=== PATIENT | male | born 1990 | race Caucasian/White ===

== ENCOUNTER 2023-07-02 16:09 | Outpatient (OUT) | payer OTHER, SELFPAY ==
--- NOTE | 2023-07-02 | XR_ITS ---
The [address] [address] Patient Name: JUMANA BALLARD MRN: [id number] date: 1990 Sex: M Assigned Patient Location: LAB Current Patient Location: LAB Accession/Order Number: [id number] Exam Date: 07/02/2023 16:35 Report Date: 07/02/2023 17:11 At the request of: TAMANNA CHAN Procedure: XR foot LT 2V EXAM: XR foot LT 2V HISTORY: M79.672 COMPARISON: None. TECHNIQUE: 2 views of the left foot were obtained. FINDINGS: There is no evidence of an acute fracture or dislocation. There is very slight narrowing at the first metatarsophalangeal joint, and superficial soft tissue swelling is noted. The joint spaces are otherwise intact. No abnormal soft tissue calcifications are present. XR/XR foot LT 2V IMPRESSION: Minimal degenerative changes are seen at the first metatarsophalangeal joint. Soft tissue swelling and edema is also present at this joint. There is no evidence of an acute fracture or dislocation, and the joint space otherwise intact. Electronically authenticated by: WILLIAM IVY Date: 07/02/2023 17:11
[2023-07-02 16:48] LABS: Erythrocyte Sedimentation Rate 19 mm/hr (<=15)
[2023-07-02 17:11] LABS: Uric Acid 7.3 mg/dL (3.5-7.2)
[2023-07-02 17:15] LABS: C Reactive Protein <0.50 mg/dL (<=0.50)
== END 2023-07-02 16:10 | disposition home or self-care (01) ==
LOC: LAB 16:14
PROVIDERS: PCP Family Medicine; Visit Provider Family Medicine
DX: M79.672 Pain in left foot (principal); E79.0 Hyperuricemia without signs of inflammatory arthritis and tophaceous disease; M25.475 Effusion, left foot
CPT/HCPCS: 36415; 73620; 84550; 85652; 86140

== ENCOUNTER 2023-09-14 06:50 | Outpatient (OUT) | payer OTHER, SELFPAY ==
--- OUTSIDE RECORDS SUMMARY | 2023-09-14 06:55 | XMS_ITS | CCD ---
Author Organization [facility] Care Team Providers Care School Operations Manager Name Role Phone BRADFORD HARRIS Admitting Unavailable BRADFORD HARRIS Attending Unavailable DR EDUARDO HERNANDEZ Primary Care Unavailable DR KINZA MORFIN Consulting Unavailable CHARLES POWER Consulting Unavailable ECTOR SHI Consulting Unavailable Georgi Unger Unavailable Claudine John Unavailable Sherrie Pride Unavailable Allergies Allergy Classification Reported Allergen(s) Allergy Type Date of Onset Reaction(s) Facility (6 sources) Amoxicillin Drug Allergy Unknown [facility] Other (6 sources) penicillAMINE Drug Allergy unknown [facility] Other Medications Current Medications Medication Drug Class(es) Dates Sig (Normalized) Sig (Original) [id number] 200 actuat albuterol 0.09 mg/actuat metered dose inhaler (3 sources) beta2-Adrenergic Agonist Start: 06-29-2022 take 2 puff(s) by inhalation four times daily as needed Albuterol Sulfate HFA 108 (90 Base) MCG/ACT 2 puffs Inhalation 4 times a day prn Jun, Active Start: 06-29-2022 take 2 puff(s) by in halation four times daily as needed Albuterol Sulfate HFA 108 (90 Base) MCG/ACT 2 puffs Inhalation 4 times a day prn Jun, Active allopurinol 100 mg oral tablet (2 sources) Xanthine Oxidase Inhibitor Start: 07-31-2019 take 1 tablet by mouth every twenty-four hours Allopurinol 100 MG 1 tablet Orally Once a day for 30 days Jul, Active azithromycin 250 mg oral tablet (1 source) Macrolide Antimicrobial Start: 07-26-2023 Azithromycin 250 MG 2 tablets on day 1 Orally then take 1 tablet daily on days 2-5 for 5 days Jul, Active doxycycline hyclate 100 mg oral tablet (3 sources) Tetracycline-class Drug Start: 06-29-2022 take 1 tablet by mouth every twelve hours Doxycycline Hyclate 100 MG 1 tablet Orally Twice a day for 7 days Jun, Active hydrocortisone 10 mg/ml / neomycin 3.5 mg/ml / polymyxin b 29070 unt/ml otic suspension (3 sources) Aminoglycoside Antibacterial, Polymyxin-class Antibacterial, Corticosteroid Start: 06-29-2022 Neomycin-Polymyx in-HC 3.5-64179-9 3 drops left ear Three times a day for 7 days Jun, Active predniSONE 20 mg oral tablet (6 sources) Start: 06-29-2022 take 1 tablet by mouth every twelve hours predniSONE 20 MG 1 tablet Orally 2 times a day for 5 day(s) Jun, Active Start: 03-26-2022 predniSONE 20 MG take 3 tablets Orally x3 days, then 2 tabs x3 days then 1 tab a day x3 days then take 1/2 tablet x4 days with food or milk for 13 days Mar, Active terbinafine 250 mg oral tablet (1 source) Allylamine Antifungal Start: 05-20-2023 take 1 tablet by mouth every twenty-four hours Terbinafine HCl 250 MG 1 tablet Orally Once a day for 15 days Apr, Active Completed/Discontinued Medications Medication Drug Class(es) Dates Sig (Normalized) Sig (Original) Triamcinolone (6 sources) Corticosteroid Start: 03-10-2014 NEVAEHALOG - 10 m g Feb, 1.5 cc Problems Problem Classification Problem Date Documented Date Episodic/Chronic Allergic reactions (1 source) Unspecified contact dermatitis, unspecified cause Episodic Chronic obstructive pulmonary disease and bronchiectasis (1 source) Bronchitis, not specified as acute or chronic Episodic Disorders of lipid metabolism (7 sources) Dyslipidemia; Translations: [Hyperlipidemia, unspecified] Chronic E Codes: Fall (1 source) Unspecified fall, initial encounter; Translations: [UNSPECIFIED FALL INITIAL ENCOUNTER] Onset: 06-20-2022 Episodic Gout and other crystal arthropathies (3 sources) Primary gout; 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, 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 Immunizations and screening for infectious disease (4 sources) Patient encounter status; Translations: [Screening examination for venereal disease] Onset: 06-20-2022 Episodic Open wounds of head; neck; and trunk (1 source) Laceration without foreign body of scalp, initial encounter; Translations: [LACERATION W/O FB SCALP INITIAL ENC] Onset: 06-20-2022 Episodic Other aftercare (1 source) Encounter for removal of sutures Episodic Other connective tissue disease (1 source) Pain in left foot Episodic Other ear and sense organ disorders (1 source) Unspecified acute noninfective otitis externa, left ear Episodic Other injuries and conditions due to external causes (3 sources) Unspecified injury of head, initial encounter; Translations: [UNSPECIFIED INJURY HEAD INITIAL ENC] Onset: 06-13-2022 Episodic Other injuries and conditions due to external causes (1 source) Other specified injuries of head, initial encounter; Translations: [OTH SPEC INJURIES HEAD INITIAL ENC] Onset: 06-20-2022 Episodic Other nutritional; endocrine; and metabolic disorders (3 sources) Hyperuricemia without signs of inflammatory arthritis and tophaceous disease; Translations: [Hyperuricemia without signs of inflammatory arthritis and tophaceous disease] Episodic Other nutritional; endocrine; and metabolic disorders (2 sources) Hyperuricemia without signs of inflammatory arthritis and tophaceous disease Episodic Other nutritional; endocrine; and metabolic disorders (1 source) Abnormal weight gain Episodic Otitis media and related conditions (1 source) Otitis media, unspecified, left ear Episodic Results Test Name Value Interpretation Reference Range Facil ity CT CSPINE WO CONon 2 CT CSPINE WO CON EXAMINATION: CT CSPI NE WO CON HISTORY: UNSPECIFIED INJURY OF HEAD, INITIAL ENCOUNTER COMPARISON: No relevant comparison available. TECHNIQUE: Axial, Coronal, and Sagittal images were created without IV contrast. Dose reduction techniques were achieved by using automated exposure control and/or adjustment of mA and/or kV according to patient size and/or use of iterative reconstruction technique. FINDINGS: VERTEBRAL BODIES: Straightening of the normal lordotic curvature. No fracture, pars defect, or osseous lesion. FACET JOINTS: No disruption or abnormal widening. CERVICAL DISCS: Slight narrowing C5-C6, C6-C7. CENTRAL CANAL: No spinal stenosis or evidence of hemorrhage. PARASPINAL AREA: No visible mass. IMPRESSION: 1. No acute bone abnormality. 2. Minimal degenerative disc disease. 3. Reversal of the normal lordotic curvature; positioning versus muscle spasm. Electronically authenticated by: KINZA MORFIN Date: 2022-06-13 14:31 Normal [facility] CT HEAD WO CONon 06-13-2022 CT HEAD WO CON EXAMINATION: CT HEAD WO CON HISTORY: UNSPECIFIED INJURY OF HEAD, INITIAL ENCOUNTER COMPARISON: None. TECHNIQUE: CT examination of the head without IV contrast. Dose reduction techniques were achieved by using automated exposure control and/or adjustment of mA and/or kV according to patient size and/or use of iterative reconstruction technique. FINDINGS: No acute intracranial hemorrhage. No acute loss of kebede/white differentiation. The ventricles and sulci are normal in appearance. The osseous structures are unremarkable. No soft tissue abnormality identified. The paranasal sinuses and mastoid air cells are clear. IMPRESSION: 1. No acute intracranial abnormality. Electronically authenticated by: ECTOR SHI Date: 2022-06-13 14:23 Normal [facility] PROGRESSon 08-18-2019 PROGRESS HNO ID: [id number] Author: Starla (Wayne) Jhoan Service: ? Author Type: Technologist Type: Progress Notes Filed: 08/18/2019 1:40 PM Note Text: Semen Cryopreservation Storage One Year WAYNE Najera Normal [facility] Semen W/Uon 2018 % Motile Sperm 72 % Normal >40 [facility] Comment on above: Performed By: #### B ESMNR #### [facility] [address], [place] [address] Abnormal Head 90 % Normal [facility] Comment on above: Performed By: #### B ESMNR #### [place] [facility] [address] [place], [place] [address] Abnormal Tails 4 % Normal [facility] Comment on above: Performed By: #### B ESMNR #### [facility] [address] [place], [place] [address] Abstinence Time 2.[address] [facility] Comment on above: Performed By: #### B ESMNR #### [facility] [address] [place], [place] [address] aPTT Coag (Bld) [Time] 1135/EVALUATION TIME [address] [facility] Comment on above: Performed By: #### B ESMNR #### [facility] [address] [place] [phone] Collection Time [address] [facility] Comment on above: Performed By: #### B ESMNR #### [facility] [address] [place] [phone] Concentration 64 M/mL Normal >15 [facility] Comment on above: Performed By: #### B ESMNR #### [facility] [address] [place] [phone] Date Of Analysis IVF SEMEN ANALYSIS 08/27/18 [facility] Comment on above: Performed By: #### B ESMNR #### [facility] [address] [place] [phone] Forward Progression 3 Normal [facility] Comment on above: Result Comment: (NOT E) INTERPRETATION: 0 = No motility 1 = Weak, twitching in place 2 = Poor to moderate, erratic 3 = Good motility, unidirectional 4 = Rapid unidirectional Performed By: #### B ESMNR #### [facility] [address] [place] [phone] Semen Color Normal [facility] Comment on above: Performed By: #### B ESMNR #### [facility] [address] [place] [phone] Semen Comment 1 PARTNER=MARGARITA BALLARD Normal [facility] Comment on above: Result Comment: ANTI BODIES NEGATIVE IGG=0% IGA=0% Performed By: #### B ESMNR #### [facility] [address] [place] [phone] Semen Comment 2 2 VIALS FROZEN POST THAW MOTILITY 66% [facility] Comment on above: Performed By: #### B ESMNR #### [facility] [address] [place] [phone] Semen pH 7.6 Normal >7.2 [facility] Comment on above: Performed By: #### B ESMNR #### [facility] [address] [place] [address] Semen Viscosity Normal Normal [facility] Comment on above: Performed By: #### B ESMNR #### [facility] [address] [place] [phone] Semen Volume 1.4 mL Low >1.5 [facility] Comment on above: Result Comment: Test ing performed at the [facility]. Contact Dr. Flora Verdugo, PhD, [facility] for any questions ([phone]). Performed By: #### B ESMNR #### [place] [address] [place] [address] Sperm Diff (Dave) 6 % Normal >4 [facility] Comment on above: Performed By: #### B ESMNR #### [place] [address] [place] [address] Total Count Sperm 89.6 M Normal [facility] Comment on above: Performed By: #### B ESMNR #### [place] [address] [place] [address] Total Motile Sperm 64.51 M Normal [facility] Comment on above: Performed By: #### B ESMNR #### [place] [address] [place] [address] CNNURSEon 08-27-2018 CNNURSE Nurse Visit (REIBD) JUMANA BALLARD ([id number]) 1990 M Date Time Provider Department 08/27/18 11:00 AM NURSE [facility] ERIKA KEVIN During your visit today, we recorded the following information about you: Referring Provider: SELF [200] Allergies As of Date: 08/27/2018 (Not on File) Date Reviewed: Never Reviewed Primary Visit Diagnosis:Fertility testing [Z31.41] Problem List As Of Date: 08/27/2018 (None) Encounter Status:Closed by BECCA GALVEZ MD on 09/17/18 [facility] CNOVon 08-27-2018 CNOV Office Visit (ANDRBE ) JUMANA BALLARD ([id number]) 1990 M Date Time Provider Department 08/27/18 11:00 AM ANDROLOGY CHAIR POST MACHINE OPERATOR [facility] During your visit today, we recorded the following information about you: WAYNE Najera 08/27/2018 2:22 PM Signed IVF Semen Analysis WAYNE Najera Referring Provider: SELF [200] Allergies As of Date: 08/27/2018 (Not on File) Date Reviewed: Never Reviewed Primary Visit Diagnosis:Fertility testing [Z31.41] Problem List As Of Date: 08/27/2018 (None) Encounter Status:Closed by STARLA VILLANUEVA on 08/27/18 [facility] PROGRESSon 08-27-2018 PROGRESS HNO ID: [id number] Author: Starla (Wayne) Jhoan Service: ? Author Type: Technologist Type: Progress Notes Filed: 08/27/2018 2:22 PM Note Text: IVF Semen Analysis WAYNE Najera [facility] Vital Signs Date Time Vital Sign Value Performing Clinician Facility 07-04-2023 10:10-0500 Body height 177.8 cm Georgi Unger Other [facility] Other 06-29-2022 14:30-0500 Body height 177.8 cm Sherrie Pride Other [facility] Other 06-29-2022 14:30-0500 Body mass index (BMI) [Ratio] 25.11 kg/m2 Sherrie Pride Other [facility] Other 06-29-2022 14:30-0500 Body temperature 98.9 [degF] Sherrie Pride Other [facility] Other 06-29-2022 14:30-0500 Body weight 79.38 kg Sherrie Pride Other [facility] Other 06-29-2022 14:30-0500 Respiratory rate 18 /min Sherrie Pride Other [facility] Other 06-29-2022 14:30-0500 SaO2% (BldA) [Mass fraction] 97 % Sherrie Pride Other [facility] Other 06-22-2022 11:10-0500 Body height 177.8 cm John Chow Other [facility] Other 06-22-2022 11:10-0500 Body mass index (BMI) [Ratio] 25.82 kg/m2 John Chow Other [facility] Other 06-22-2022 11:10-0500 Body temperature John Chow Other [facility] Other 06-22-2022 11:10-0500 Body weight 81.65 kg John Claudine Other [facility] Other 06-22-2022 11:10-0500 Diastolic blood pressure 88 mm[Hg] John Chow Other [facility] Other 06-22-2022 11:10-0500 SaO2% (BldA) [Mass fraction] 97 % John Chow Other [facility] Other 06-22-2022 11:10-0500 Systolic blood pressure 146 mm[Hg] John Chow Other [facility] Other Encounters Encounter Date Encounter Type Care Provider Facility Start: 07-25-2023 End: 07-25-2023 ambulatory Georgi Unger Other [facility] Other Start: 07-25-2023 Telephone encounter Georgi Unger [facility] Start: 07-04-2023 End: 07-04-2023 ambulatory Georgi Unger Other [facility] Other Start: 07-04-2023 Encounter for genera l adult medical examination without abnormal findings Georgi Unger [facility] [place] Start: 07-04-2023 Telephone encounter Georgi Unger [facility] [place] Start: 07-02-2023 End: 07-02-2023 ambulatory Georgi Unger Other [facility] Other Start: 07-02-2023 Telephone encounter Georgi Unger [facility] [place] Start: 06-29-2022 End: 06-29-2022 ambulatory Sherrie Pride Other [facility] Other Start: 06-29-2022 Office outpatient vi sit 15 minutes Sherrie Pride [facility] [place] Start: 06-22-2022 End: 06-22-2022 ambulatory John Chow Other [facility] Other Start: 06-22-2022 Office outpatient vi sit 15 minutes John Chow [facility] [address] Start: 06-13-2022 End: 06-13-2022 ambulatory BRADFORD HARRIS Facility:[facility] Start: 03-26-2022 End: 03-26-2022 ambulatory Georgi Unger Other [facility] Other Start: 03-26-2022 Telephone encounter Georig Unger [facility] [place] Start: 11-14-2020 SAMUEL, Provider: ANDROLOGY LATOYA MARTINEZ MP IFOB, Status: Pen, Time: 10:30 AM Sheri Reyes MD Work Phone: [id number] IVF Work Phone: Start: 11-13-2020 AUDIT Sheri Reyes MD Work Phone: [id number] IVF Work Phone: Plan of Treatment Date Care Activity Detail Author Start: 12-02-2020 SAMUEL, Provider: ANDROLOGY LATOYA MARTINEZ MP IFOB, Status: Pen, Time: 11:30 AM SEMDIANA, Provider: ANDROLOGY IVF TRINI MARTINEZ IFOB, Status: Pen, Time: 11:30 AM [id number] IVF Work Phone: Immunizations Immunization Date Immunization Notes Care Provider Gama tompkins NEGATED: Highlighted row has not occurred!08-05-2017 influenza, injectable, quadrivalent, contains preservative Patient Objection Georgi Unger Other [facility] Other Payers Date Payer Category Payer Unknown [id number] 1961 Unknown [id number] Unknown [email or web address] Social History Date Type Detail Facility Unknown if ever smoked [facility] Other Sex Assigned At Sex Assigned At Bir th [facility] Other Evaluation note 07-04-2023 Note Date & Type Note Facility 07-04-2023 Evaluation note Encounter Date Diagnosis Assessment Notes Jun, Idiopathic gout of left foot, unspecified chronicity (ICD-10 - M10.072) He states that his left foot pain at the base of the big toe is starting to improve. He is on the second day of the prednisone burst. His uric acid level is mildly elevated and we discussed that it was actually even higher when it was checked in 2019 and he had started allopurinol at that time and took it for a few months and then it fell by the Benge and he did not follow-up after that. He will continue the prednisone taper and start allopurinol 2 days from now taking 1 daily. We will send that in for him today. Jun, Elevated uric acid in blood (ICD-10 - E79.0) We discussed diet changes to help lower the uric acid level. He does not eat red meat and he will try to limit this. It is good that he does not drink much alcohol. We will recheck the uric acid level with his wellness blood work in approximately 3 months. Jun, Dyslipidemia (ICD-10 - E78.5) Jun, Weight gain (ICD-10 - R63.5) Jun, Wellness examination (ICD-10 - Z00.00) For lab order only Jun, Other 10:18 AM through 10:34 AM [facility] Other Evaluation note 07-02-2023 Note Date & Type Note Facility 07-02-2023 Evaluation note Encounter Date Diagnosis Assessment Notes Jun, Elevated uric acid in blood (ICD-10 - E79.0) Jun, Left foot pain (ICD-10 - M79.672) [facility] Other Evaluation note 06-29-2022 Note Date & Type Note Facility 06-29-2022 Evaluation note Encounter Date Diagnosis Assessment Notes Jun, Left otitis media, unspecified otitis media type (ICD-10 - H66.92) Middle ear infection: adult home care material was printed Drink plenty fluids, get plenty of rest. Take the doxycycline and prednisone as prescribed until gone. Use the albuterol inhaler as prescribed as needed for cough or shortness of breath. Use eardrops as prescribed. Take Tylenol or Motrin as needed for aches pains or fevers. Follow-up with your family physician if no improvement in 2 to 3 days. Jun, Acute otitis externa of left ear, unspecified type (ICD-10 - H60.502) Jun, Bronchitis (ICD-10 - J40) [facility] Other Evaluation note 06-22-2022 Note Date & Type Note Facility 06-22-2022 Evaluation note Encounter Date Diagnosis Assessment Notes May, Removal of primitivo (ICD-10 - Z48.02) 9 primitivo removed by ABRAHAM Spence with staple remover. Pt tolerated procedure well. [facility] Other Evaluation note 03-26-2022 Note Date & Type Note Facility 03-26-2022 Evaluation note Encounter Date Diagnosis Assessment Notes Mar, Contact dermatitis (ICD-10 - L25.9) He thinks he came into contact with the poison rey mid week last week, he is in the middle of cleaning a thicket out and believes that this is where he came into contact with it. I did recommend that he be treated with steroids. He is in agreement to this and voices that he usually has to take steroids when he has poison rey. Guidance is given on how to take the medication. Side effects/risks /benefits of medication were reviewed. Use caution when in the sun, and do not lift anything that would place strain on his tendons. If he develops Achilles tendon pain stop the medication. Take medication with food. Mar, Other 1:06 PM - 1:11 PM [facility] Other History general Narrative - Reported 07-25-2021 Note Date & Type Note Facility 07-25-2021 History general N arrative - Reported Type Medical History past hx of chickenpoxs Medical History COVID-19 07/2021 Surgical History wisdom teeth extracted 2015 [facility] Other Evaluation note Note Date & Type Note Facility Evaluation note No Information [facility] Other Summary Purpose Family History No Family History Records FoundNo Family History Records Found Advance Directives No Advanced Directives Records FoundNo Advanced Directives Records Found Additional Source Comments (unrecognized sect ion and content) No Status Records FoundNo Status Records Found INFORMATION SOURCE (unrecogn ized section and content) DATE CREATED AUTHOR 08/18/2019 [facility] DATE CREATED AUTHOR AUTHOR'S NEIL MCGREGOR 06/20/2022 [facility] REASON FOR VISIT (unrecogniz ed section and content) poison ivyREMOVE STAPLESEARA TREVOR, COUGH, CONGESTIONpossible goutDiscuss lab resultsfrom 07/18/23 FOR RECORDS PERTAINING TO PATIENTS WHO ARE OR HAVE BEEN ENROLLED IN A CHEMICAL DEPENDENCY/SUBSTANCEABUSE PROGRAM, SOME INFORMATION MAY BE OMITTED. This clinical summary was aggregated from multiple sources. Caution should be exercised in using it in the provision of clinical care. This summary normalizes information from multiple sources, and as a consequence, information in this document may materially change the coding, format and clinical context of patient data. In addition, data may be omitted in some cases. CLINICAL DECISIONS SHOULD BE BASED ON THE PRIMARY CLINICAL RECORDS. [employer] provides no warranty or guarantee of the accuracy or completeness of information in this document.
[2023-09-14 07:08] LABS: Bilirubin Urine NEGATIVE (NEGATIVE); Blood Urine NEGATIVE (NEGATIVE); Clarity Urine CLEAR (CLEAR); Color Urine LT. YELLOW (YELLOW); Glucose Urine UA NEGATIVE (NEGATIVE); Ketones Urine NEGATIVE (NEGATIVE); Leukocyte Esterase Urine NEGATIVE (NEGATIVE); Nitrite Urine NEGATIVE (NEGATIVE); Protein Urine NEGATIVE (NEG/TRACE); Specific Gravity Urine 1.025 (1.005-1.025); Urobilinogen Urine 0.2 EU/dL (0.2-1.0)
[2023-09-14 07:08] LABS: Basophils Absolute Auto 0.1 10^3/uL (0.0-0.1); Basophils Percent Auto 0.7 % (0.2-2.0); Eosinophils Absolute Auto 0.2 10^3/uL (0.0-0.7); Eosinophils Percent Auto 2.3 % (0.9-7.0); Hematocrit 43.8 % (42.0-54.0); Hemoglobin 14.1 g/dL (14.0-18.0); Immature Granulocytes Abs Auto 0.03 10^3/uL (0.00-0.03); Immature Granulocytes Pct Auto 0.4 % (0.0-0.5); Lymphocytes Absolute Auto 2.6 10^3/uL (1.2-3.8); Lymphocytes Percent Auto 35.2 % (20.5-60.0); Mean Corpuscular HGB Conc 32.2 g/dL (29.9-35.2); Mean Corpuscular Volume 87.1 fL (80.0-94.0); Mean Platelet Volume 9.5 fL (9.5-13.5); Monocytes Absolute Auto 0.6 10^3/uL (0.3-0.8); Monocytes Percent Auto 7.6 % (1.7-12.0); Neutrophils Percent Auto 53.8 % (43.0-75.0); Platelet Count 221 10^3/uL (150-450); Red Blood Count 5.03 10^6/uL (4.70-6.10); Red Cell Distribution Width 12.3 % (11.0-15.0); White Blood Count 7.4 10^3/uL (4.0-11.0)
[2023-09-14 07:33] LABS: Bacteria Urine NONE SEEN #/HPF (NONE SEEN); Cast Seen? NONE SEEN #/LPF (NONE SEEN); Crystals Seen? None Seen #/HPF (None Seen); Mucus Urine NONE SEEN (NONE SEEN); RBC Urine NONE SEEN #/HPF (0-2); Squamous Epithelial Cell Urine RARE #/LPF (NONE/RARE); WBC Urine NONE SEEN #/HPF (NONE SEEN)
[2023-09-14 08:01] LABS: Alanine Aminotransferase 23 U/L (16-63); Albumin Globulin Ratio 1.1; Albumin Level 3.9 g/dL (3.4-5.0); Alkaline Phosphatase 60 U/L (46-116); Anion Gap 12.6; Aspartate Amino Transferase 15 U/L (15-37); BUN Creatinine Ratio 12.3; Bilirubin Total 0.4 mg/dL (0.2-1.0); Carbon Dioxide 30.4 mmol/L (21.0-32.0); Chloride 104 mmol/L (98-107); Chol HDL Ratio 4.5; Cholesterol 163 mg/dL (<=200); Estimated GFR (African America >60 (>=60); Estimated GFR (Non-African Ame >60 (>=60); Globulin 3.4 g/dL; Glucose 101 mg/dL (74-106); HDL Cholesterol 36 mg/dL (40-60); Sodium 143 mmol/L (136-145); Thyroid Stimulating Hormone 2.272 uIU/mL (0.358-3.740); Total Protein 7.3 g/dL (6.4-8.2); Triglycerides 214 mg/dL (<=150); Uric Acid 6.7 mg/dL (3.5-7.2); VLDL CHOLESTEROL 42.8 mg/dL
== END 2023-09-14 06:51 | disposition home or self-care (01) ==
PROVIDERS: PCP Family Medicine; Visit Provider Family Medicine
DX: Z00.00 Encounter for general adult medical examination without abnormal findings (principal); M10.072 Idiopathic gout, left ankle and foot; E78.5 Hyperlipidemia, unspecified; R63.5 Abnormal weight gain
CPT/HCPCS: 36415; 80053; 80061; 81001; 84443; 84550; 85025

== ENCOUNTER 2025-03-29 12:25 | Emergency (ER) | payer OTHER, SELFPAY ==
--- OUTSIDE RECORDS SUMMARY | 2025-03-19 07:33 | XMS_ITS | Continuity of Care Document ---
Author Organization [facility] Address [address] [place] [address] Phone Care Team Providers Care Magnetic Resonance Technologist Name Role Phone Cornel Georgi OMER Primary Care Provider [phone] Georgi Unger DO Attending Provider Care Teams Patient Care Team Team Status: Active Member Role Status Zaira Unger DO Primary Care Provider Active Visit Care Team Team Status: Inactive Member Role Status Zaira Unger DO Primary Care Provider Active S tart: March 18, 2025 End: March 18, 2025 Georgi Unger DO Attending Provider Active Star t: March 18, 2025 End: March 18, 2025 Patient Care Team Team Status: Inactive Member Role Status Zaira Unger DO Primary Care Provider Active S tart: March 19, 2025 End: March 19, 2025 Georgi Unger DO Attending Provider Active Star t: March 19, 2025 End: March 19, 2025 Chief Complaint and Reason for Visit Chief Complaint Admit Date wellness/review labs March 19 10:59am Reason for Visit Admit Date Elevated blood uric acid level March 19, 2025 10:59am Encounter for prostate cancer screening March 19, 2025 10:59am Hyperglycemia March 19, 2025 10:59am Hyperlipidemia March 19, 2025 10:59am Other abnormal blood chemistry March 19, 2025 10:59am Wellness examination March 19 10:59am Allergies, Adverse Reactions, Alerts Allergen Type Severity Reaction Last Updated Verified Status amoxicillin Allergy Unknown Rash March 19, 2025 8:54am Yes Active penicillamine Allergy Unknown unknown March 19, 2025 8:54a m Yes Active Social History Smoking Status Status Start Date End Date Date of Observa tion Never smoked tobacco (finding) March 19, 2025 11:02am Observation Status Observation Response Date of Response Legal Sex Male (finding) Sex Assigned At Male [birth year] Family History Relationship Condition Age at Onset Recorded Date/T fer grandparent Malignant neoplasm Unknown Family history of lung cancer Unknown Unknown grandparent Unknown grandparent Unknown grandparent Unknown mother Diabetes mellitus Unknown Problems Active Problems Medical Problem Onset Date Status Encounter for prostate cancer screening Unknown Active Encounter for screening for cardiovascular disor ders Unknown Active Tinea Unknown Active Dyslipidemia Unknown Active Wellness examination Unknown Active Hyperglycemia Unknown Active Hyperlipidemia Unknown Active Elevated blood uric acid level Unknown A ctive Other abnormal blood chemistry Unknown A ctive Idiopathic gout of left foot Unknown Act [place] Medications Medication Status Dose Units Route Directions Qty Days St art Date Stop Date End Date Instructions Adherence [place] (No Known Home Meds) Active 2024 12:00a m Allopurinol 100 mg tablet Discont inued 1 TAB PO Daily September 16, 2023 12:00a m September 16, 2023 4:46p m FreeTextSi tablet Orally Once a day; Note: Source Status: Taking; Refills: 3; Qty: 30 Tablet; Provider: Cornel Mchugh Terbinafine Hcl 250 mg tablet Discont inued 250 MG PO Daily September 16, 2023 12:00a m [facility] 2024 11:01 am Relevant Diagnostic Tests and/or Laboratory Data Laboratory Results Test Collection Date/Time Result Date/Time Result Interpretation Reference Range Result Comment Performing Site Correcte d White Blood Count March 18, 2025 7:12am March 18, 2025 5:03pm 7.1 10*3/uL 4.1-10.5 [facility] [id number] [address] [facility] [address] Uncorrec jose luis WBC Count March 18, 2025 7:12am March 18, 2025 5:03pm 7.1 10*3/uL 4.1-10.5 [facility] [id number] [address] [facility] [address] Red Blood Count March 18, 2025 7:12am March 18, 2025 5:03pm 5.03 10*6/uL 3.90-5.60 [facility] [id number] [address] [facility] [address] Hemoglob in March 18, 2025 7:12am March 18, 2025 5:03pm 14.4 g/dL 13.0-17.0 [facility] [id number] [address] [facility] [address] Hematocr it March 18, 2025 7:12am March 18, 2025 5:03pm 43.0 % 38.8-50.0 [facility] [id number] [address] [facility] [address] Mean Corpuscu lar Volume March 18, 2025 7:12am March 18, 2025 5:03pm 85.4 fL 83.5-101 [facility] [id number] [address] [facility] [address] Mean Corpuscu lar Hemoglob in March 18, 2025 7:12am March 18, 2025 5:03pm 28.7 pg 27.5-35.2 [facility] [id number] [address] [facility] [address] Mean Corpuscu lar Hemoglob in Concent March 18, 2025 7:12am March 18, 2025 5:03pm 33.6 g/dL 32.5-35.6 [facility] [id number] [address] [facility] [address] Red Cell Distribu tion Width March 18, 2025 7:12am March 18, 2025 5:03pm 12.8 % 12.0-14.8 [facility] [id number] [address] [facility] [address] Platelet Count March 18, 2025 7:12am March 18, 2025 5:03pm 236 10*3/uL 150-450 [facility] [id number] [address] [facility] [address] Mean Platelet Volume March 18, 2025 7:12am March 18, 2025 5:03pm 8.7 fL 6.6-10.1 [facility] [id number] [address] [facility] [address] Neutroph ils (%) (Auto) March 18, 2025 7:12am March 18, 2025 5:03pm 61.7 % . [facility] [id number] [address] [facility] [address] Lymphocy divine (%) (Auto) March 18, 2025 7:12am March 18, 2025 5:03pm 30.4 % . [facility] [id number] [address] [facility] [address] Monocyte s (%) (Auto) March 18, 2025 7:12am March 18, 2025 5:03pm 6.4 % . [facility] [id number] [address] [facility] [address] Eosinoph ils (%) (Auto) March 18, 2025 7:12am March 18, 2025 5:03pm 1.0 % . [facility] [id number] [address] [facility] [address] Basophil s (%) (Auto) March 18, 2025 7:12am March 18, 2025 5:03pm 0.5 % . [facility] [id number] [address] [facility] [address] Nucleate d RBC Relative Count (auto) March 18, 2025 7:12am March 18, 2025 5:03pm 0.1 /100{WBC} 0-0.5 [facility] [id number] [address] [facility] [address] Neutroph ils # (Auto) March 18, 2025 7:12am March 18, 2025 5:03pm 4.4 10*3/uL 1.8-7.7 [facility] [id number] [address] [facility] [address] Lymphocy divine # (Auto) March 18, 2025 7:12am March 18, 2025 5:03pm 2.1 10*3/uL 1.00-4.8 [facility] [id number] [address] [facility] [address] Monocyte s # (Auto) March 18, 2025 7:12am March 18, 2025 5:03pm 0.5 10*3/uL 0.0-0.8 [facility] [id number] [address] [facility] [address] Eosinoph ils # (Auto) March 18, 2025 7:12am March 18, 2025 5:03pm 0.1 10*3/uL 0.0-0.45 [facility] [id number] [address] [facility] [address] Basophil s # (Auto) March 18, 2025 7:12am March 18, 2025 5:03pm 0.0 10*3/uL 0.0-0.2 [facility] [id number] [address] [facility] [address] Urine Color March 18, 2025 7:12am March 18, 2025 3:04pm Yellow Yellow [facility] [id number] [address] [facility] [address] Urine Appearan ce March 18, 2025 7:12am March 18, 2025 3:04pm Clear Clear [facility] [id number] [address] [facility] [address] Urine Specific Clemons March 18, 2025 7:12am March 18, 2025 3:04pm 1.020 1.001-1.03 0 [facility] [id number] [address] [facility] [address] Urine pH March 18, 2025 7:12am March 18, 2025 3:04pm 6.0 5.0-9.0 [facility] [id number] [address] [facility] [address] Urine Leukocyt e Esterase March 18, 2025 7:12am March 18, 2025 3:04pm Negative Negative [facility] [id number] [address] [facility] [address] Urine Nitrite March 18, 2025 7:12am March 18, 2025 3:04pm Negative Negative [facility] [id number] [address] [facility] [address] Urine Protein March 18, 2025 7:12am March 18, 2025 3:04pm Negative mg/dL Negative [facility] [id number] [address] [facility] [address] Urine Glucose (UA) March 18, 2025 7:12am March 18, 2025 3:04pm Normal mg/dL Normal [facility] [id number] [address] [facility] [address] Urine Ketones March 18, 2025 7:12am March 18, 2025 3:04pm Negative Negative [facility] [id number] [address] [facility] [address] Urine Urobilin ogen March 18, 2025 7:12am March 18, 2025 3:04pm Normal mg/dL Normal [facility] [id number] [address] [facility] [address] Urine Bilirubi n March 18, 2025 7:12am March 18, 2025 3:04pm Negative Negative [facility] [id number] [address] [facility] [address] Urine Occult Blood March 18, 2025 7:12am March 18, 2025 3:04pm Negative Negative [facility] [id number] [address] [facility] [address] Glucose Level March 18, 2025 7:12am March 18, 2025 5:21pm 101 mg/dL Above high normal 70-100 ADA recommended reference rangeRandom Glucose Reference Range is dependent on time and content of last meal. Glucose of more than 200 mg/dL in a nonstressed , ambulatory subject supports the diagnosis of Diabetes Mellitus. [facility] [id number] [address] [facility] [address] Blood Urea Nitrogen March 18, 2025 7:12am March 18, 2025 5:21pm 20 mg/dL 01-15 [facility] [id number] [address] [facility] [address] Creatini ne March 18, 2025 7:12am March 18, 2025 5:21pm 1.13 mg/dL 0.70-1.30 [facility] [id number] [address] [facility] [address] Estimate d GFR (CKD-EPI ) March 18, 2025 7:12am March 18, 2025 5:21pm > 60.0 mL/Min [facility] [id number] [address] [facility] [address] Sodium Level March 18, 2025 7:12am March 18, 2025 5:21pm 140 mmol/L 136-145 [facility] [id number] [address] [facility] [address] Potassiu m Level March 18, 2025 7:12am March 18, 2025 5:21pm 4.2 mmol/L 3.5-5.1 [facility] [id number] [address] [place] [id number] Chloride Level March 18, 2025 7:12am March 18, 2025 5:21pm 105 mmol/L 98-107 [facility] [id number] [address] [facility] [address] Carbon Dioxide Level March 18, 2025 7:12am March 18, 2025 5:21pm 29.5 mmol/L 21.0-31.0 [facility] [id number] [address] [facility] [address] Anion Gap March 18, 2025 7:12am March 18, 2025 5:21pm 9.7 mEq/L 6.0-15.0 [facility] [id number] [address] [facility] [address] Calcium Level March 18, 2025 7:12am March 18, 2025 5:21pm 9.4 mg/dL 8.6-10.3 [facility] [id number] [address] [facility] [address] Total Protein March 18, 2025 7:12am March 18, 2025 5:21pm 7.1 g/dL 6.4-8.9 [facility] [id number] [address] [facility] [address] Albumin March 18, 2025 7:12am March 18, 2025 5:21pm 4.6 g/dL 3.5-5.7 [facility] [id number] [address] [facility] [address] Globulin March 18, 2025 7:12am March 18, 2025 5:21pm 2.5 g/dL [facility] [id number] [address] [facility] [address] Albumin/ Globulin Ratio March 18, 2025 7:12am March 18, 2025 5:21pm 1.8 [facility] [id number] [address] [facility] [address] Total Bilirubi n March 18, 2025 7:12am March 18, 2025 5:21pm 0.4 mg/dL 0.3-1.0 [facility] [id number] [address] [facility] [address] Aspartat e Amino Transf (AST/SGO T) March 18, 2025 7:12am March 18, 2025 5:21pm 16 U/L 13-39 [facility] [id number] [address] [place] [id number] Alanine Aminotra nsferase (ALT/SGP T) March 18, 2025 7:12am March 18, 2025 5:21pm 13 U/L 7-52 [facility] [id number] [address] [place], [place] [address] Alkaline Phosphat ase March 18, 2025 7:12am March 18, 2025 5:21pm 58 U/L 34-104 [facility] [id number] [address] [place], [place] [address] Uric Acid March 18, 2025 7:12am March 18, 2025 5:21pm 8.0 mg/dL Above high normal 4.4-7.6 [facility] [id number] [address] [place] [id number] Choleste rol Level March 18, 2025 7:12am March 18, 2025 5:21pm 181 mg/dL 140-200 Chol less than 200 mg/dl low riskChol 201-239 mg/dl borderline riskChol 240 mg/dl and greater high risk [facility] [id number] [address] [place], [place] [address] HDL Choleste rol March 18, 2025 7:12am March 18, 2025 5:21pm 30 mg/dL 23-92 HDL CHOL ATP-III CLASSIFICAT ION Cardiovascu lar RiskHDL > or equal to 60 mg/dL LOWHDL < 40 mg/dL HIGH [facility] [id number] [address] [place] [address] Triglyce rides Level March 18, 2025 7:12am March 18, 2025 5:21pm 335 mg/dL Above high normal 0-149 TRIG ATP III CLASSIFICAT IONTRIG less than 150 mg/dL NormalTRIG 150-199 mg/dL Borderline highTRIG 200-500 mg/dL High TRIG greater than 500 mg/dL Very highStandar d traceable to the Center for Disease Conrtrol and Prevention (CDC) test method. [facility] [id number] [address] [facility] [address] LDL Choleste rol, Calculat ed March 18, 2025 7:12am March 18, 2025 5:21pm 84 mg/dL 0-100 LDL ATP III CLASSIFICAT IONLDL less than 100 mg/dL OptimalLDL 100-129 mg/dL Near or above optimalLDL 130-159 mg/dL Borderline highLDL 160-189 mg/dL HighLDL greater than 189 mg/dL Very high [facility] [id number] [address] [place] [address] VLDL Choleste rol March 18, 2025 7:12am March 18, 2025 5:21pm 67 mg/dL [facility] [id number] [address] [place], [place] [address] Choleste rol/HDL Ratio March 18, 2025 7:12am March 18, 2025 5:21pm 6.0 <5.0 [facility] [id number] [address] [place], [place] [address] Prostate Specific Antigen Screen March 18, 2025 7:12am March 18, 2025 5:29pm 0.650 ng/mL 0.000-4.00 0 Serial tumor marker results determined by assays using different manufacture rs or methods may not be comparable. [facility] manufacture r and method:PowerDsine DXI, CHEMILUMINE SCENT IMMUNOASSAY . [facility] [id number] [address] [place], [place] [address] Thyroid Stimulat ing Hormone 3rd Gen March 18, 2025 7:12am March 18, 2025 5:47pm 2.15 u[iU]/mL 0.45-5.33 [facility] [id number] [address] [place], [place] [address] Pharmacy Creatini ne Clearanc e (Chem March 18, 2025 7:12am March 18, 2025 5:21pm N/A [facility] [id number] [address] [place], [place] [address] Vital Signs Vital Reading Result Reference Range Collection Date/Time Height 70 [in_i] March 19, 2025 10:58am Weight 78.92 kg March 19, 2025 10:58am Body Temperature 98.4 [degF] 97.6-99.0 February 232024 10:58am Heart Rate 80 /min 60-100 March 19, 2025 10:58am Oxygen saturation by Pulse oximetry 98 % 95-100 March 19, 2025 10:58am BP Systolic 138 mm[Hg] 100-140 March 19, 2025 11:04am BP Diastolic 90 mm[Hg] 60-100 March 19, 2025 11:04am BMI (Body Mass Index) 25.0 kg/m2 2024 10:58am Advance Directives Advance Directive Response Recorded Date/ Time Advance Directives No February 7:10am Insurance Providers Guarantor Kye Vini Bass Address [address] [place] [phone] Contact Info. Home Phone: Payer Policy Id Subscriber's Name Subscriber Id Kameron ctive Date Expiration Date MMO [id number] Kye Floresanmol [id number] [employer] [id number] Akanksha Bass [id number] Encounters Encounter Location(s) Arrival/Admit Date Discharge/Depart Date Provider(s) Departed Clinical -[facility] March 18, 2025 7:11am March 18, 2025 7:12am Georgi Unger DO Departed Physician/Prov ider Office Visit -[facility] [address] March 19, 2025 10:59am March 19, 2025 11:32am Georgi Unger DO Recent Diagnosis Onset Date Admit Date Elevated blood uric acid level Unknown S 2024 10:59am Encounter for prostate cancer screening Unknown March 19, 2025 10:59am Hyperglycemia Unknown March 19, 2025 10:59am Hyperlipidemia Unknown March 19, 2025 10:59am Other abnormal blood chemistry Unknown S 2024 10:59am Wellness examination Unknown February 232024 10:59am Assessments Diagnosis Onset Date Resolution Status Admit Date Elevated blood uric acid level acute March 19, 2025 10:59am Encounter for prostate cance r screening acute March 19, 2025 10:59am Hyperglycemia acute February 232024 10:59am Hyperlipidemia acute March 19, 2025 10:59am Other abnormal blood chemistry acute March 19, 2025 10:59am Wellness examination acute Feb 10:59am Plan of Treatment Author Deven Lu [facility] Authored March 19, 2025 11:29am He is here for a wellness ex am today. His TSH is normal at 2.15. He voices that he has only had one flare up of gout and has not had any symptoms since. His uric acid level has worsened and is now 8.0. I did recommend that he do some research online and look for foods that he can eat that lower uric acid levels. Avoid red meats. He can have chicken. His PSA is 0.650. No sign of prostate cancer at this time. He believes that his paternal grandpa of a heart attack. We discussed his cholesterol results today. His total cholesterol is 181. HDL is 30. LDL is 84. Triglycerides are 335 and his VLDL is 67. I did advise him that these readings are higher than I would like to see. We discussed these results today and his family history. He should cut the sugars, carbs, sweets, starches, noodles, rice etc out of his diet. Avoid processed foods. He voices that they don't eat fast foods. He does eat pizza once weekly and eats a lot of pasta. It will be difficult because he has elevated uric acid level, he can increase his intake of proteins with things like eggs and chicken. Fill up on chicken and proteins and dark green vegetables. If he were to eat a starch then he should only have what he can fit in an ice cream scoop. His blood sugar was 101 when checked. He does drink coffee and is told that this can dry him out. He needs to drink water in addition to the coffee. Increase water intake daily. His kidney studies indicate that he is dry. BUN is 20. Creatinine is 1.13. EGFR is >60. If he voids and the water is clear he is well hydrated, if the water is yellow then he needs to drink more water. Future Tests Future scheduled test information is unavailable Pending Tests Test Name Ordered Date Scheduled Date Comprehensive Metabolic Panel March 19 11:29am 1 Years Future Visits Future appointment information is unavailable Referrals to Other Providers Referral information is unavailable Future Procedures Procedure Name Ordered Date Scheduled Date A1C with Estimated Average Glu March 19 025 11:29am 1 Years Complete Blood Count Auto Diff March 19 11:29am 1 Years Lipid Panel March 19, 2025 11:29am 1 Y ears PSA Screen (Yearly Only) March 19, 2025 11 :29am 1 Years Thyroid Stimulating Hormone March 19, 2025 11:29am 1 Years Urinalysis Kami 26th, 2025 11:29am 1 Y ears Uric Acid March 19, 2025 11:30am 1 Y ears Future Medications Future medication information is unavailable Patient Instructions Patient instructions are unavailable
[2025-03-29 12:30] VITALS: BP 152/95; PULSE 90; TEMP 37.1; O2SAT 96; BMI 25.1
--- OUTSIDE RECORDS SUMMARY | 2025-03-29 12:35 | XMS_ITS | CCD ---
Author Organization [facility] Inform ion Partnership [facility] Care Team Providers Care Tester Wafer Substrate Name Role Phone BRADFORD HARRIS Admitting Unavailable BRADFORD HARRIS Attending Unavailable DAVID, DR EDUARDO Medrano Primary Care Unavailable DR KINZA MORFIN Consulting Unavailable CHARLES POWER Consulting Unavailable ECTOR SHI Consulting Unavailable Georgi Unger Unavailable John Chow Unavailable Sherrie Pride Unavailable Georgi Unger DO Primary Care Provider Georgi Unger DO Attending Provider Georgi Unger Attending Unavailable Georgi Unger Primary Care Unavailable Georgi Unger Admitting Unavailable Allergies Allergy Classification Reported Allergen(s) Allergy Type Date of Onset Reaction(s) Facility (9 sources) Amoxicillin Drug Allergy 4 Unknown, Rash [facility] (9 sources) penicillAMINE Drug Allergy 4 [facility] (1 source) Amoxicillin Drug Allergy 5 [facility] (1 source) penicillAMINE Drug Allergy 5 [facility] Medications Current Medications Medication Drug Class(es) Dates Sig (Normalized) Sig (Original) [id number] 200 actuat albuterol 0.09 mg/actuat metered dose [...] 4 times a day prn Jun, Active azithromycin 250 mg oral tablet (1 [...] / neomycin 3.5 mg/ml / polymyxin b 00512 unt/ml otic suspension (3 sources) Aminoglycoside Antibacterial, Polymyxin-class Antibacterial, Corticosteroid Start: 06-29-2022 Neomycin-Polymyxi n-HC [id number] 3 drops left ear Three times a day for 7 days Jun, Active Mantoloking (No Known Home Meds) (1 source) Start: 03-19-2025 Mantoloking (No Known Home Meds) Active March 19, 2025 12:00am predniSONE 20 mg oral tablet (6 sources) [...] or milk for 13 days Mar, Active Completed/Discontinued Medications Medication Drug Class(es) Dates Sig (Normalized) Sig (Original) allopurinol 100 mg oral tablet (5 sources) Xanthine Oxidase Inhibitor Start: 09-16-2023 End: 09-16-2023 take 1 tablet by mouth once daily Allopurinol 100 mg tablet Discontinued 1 TAB PO Daily September 16, 2023 12:00am September 16, 2023 4:46pm FreeTextSi tablet Orally Once a day; Note: Source Status: Taking; Refills: 3; Qty: 30 Tablet; Provider: Cornel Mchugh Start: 07-31-2019 take 1 tablet by lolis th every twenty-four hours Allopurinol 100 MG 1 tablet Orally Once a day for 30 days Jul, Active terbinafine 250 mg oral tablet (4 sources) Allylamine Antifungal Start: 09-16-2023 End: 03-19-2025 take 1 tablet by mouth once daily Terbinafine Hcl 250 mg tablet Discontinued 250 MG PO Daily September 16, 2023 12:00am March 19, 2025 11:01am Start: 05-20-2023 take 1 tablet by lolis th every twenty-four hours Terbinafine HCl 250 MG 1 tablet Orally Once a day for 15 days Apr, Active Triamcinolone (6 sources) Corticosteroid Start: 03-10-2014 KENALOG - 10 m g Feb, 1.5 cc Problems Problem Classification Problem Date Documented Date Episodic/Chronic Allergic reactions (1 source) Unspecified contact dermatitis, unspecified cause Episodic Chronic obstructive pulmonary disease and bronchiectasis (1 source) Bronchitis, not specified as acute or chronic Episodic Diabetes mellitus without complication (2 sources) Hyperglycemia; Translations: [Hyperglycemia, unspecified] 03-19-2025 Episodic Disorders of lipid metabolism (13 sources) Dyslipidemia; Translations: [Hyperlipidemia, unspecified] Chronic E Codes: Fall (1 source) Unspecified fall, initial encounter; Translations: [UNSPECIFIED FALL INITIAL ENCOUNTER] Onset: 06-20-2022 Episodic Gout and other crystal arthropathies (7 sources) Primary gout; 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, 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 Immunizations and screening for infectious disease (9 sources) Patient encounter status; Translations: [Screening examination for venereal disease] Onset: 06-20-2022 03-08-2025 Episodic Mycoses (4 sources) Dermatophytosis; Translations: [Dermatophytosis, unspecified] 09-16-2023 Episodic Open wounds of head; neck; and [...] Episodic Other nutritional; endocrine; and metabolic disorders (4 sources) Hyperuricemia without signs of inflammatory arthritis and tophaceous disease; 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] Onset: 03-18-2025 Episodic Other nutritional; endocrine; and metabolic disorders (2 sources) Abnormal weight gain; Translations: [Abnormal weight gain] Onset: 03-18-2025 Episodic Other nutritional; endocrine; and metabolic disorders (4 sources) Hyperuricemia; Translations: [Hyperuricemia without signs of inflammatory arthritis and tophaceous disease] 09-16-2023 Episodic Other screening for suspected conditions (not mental disorders or infectious disease) (4 sources) Blood chemistry abnormal; Translations: [Other specified abnormal findings of blood chemistry] Onset: 03-18-2025 03-19-2025 Episodic Otitis media and related conditions (1 source) Otitis media, unspecified, left ear Episodic Results Test Name Value Interpretation Reference Range Facility Alanine aminotransferase [En zymatic activity/volume] in Serum or PlasmaOrdered By: Georgi Unger on 03-18-2025 ALT [Catalytic activity/Vol] 13 U/L Normal 7-52 [facility] Comment on above: Performed By: #### U KIKI, CMP, TSH3, LIPID, UA, CBC, PSAS #### [address] Albumin [Mass/volume] in Ser um or Plasma by Bromocresol green (BCG) dye binding methoOrdered By: Georgi Unger on 03-18-2025 Albumin BCG dye [Mass/Vol] 4.6 g/dL 3.5-5.7 [facility] Alkaline phosphatase [Enzyma tic activity/volume] in Serum or PlasmaOrdered By: Georgi Unger on 03-18-2025 ALP [Catalytic activity/Vol] 58 U/L Normal 34-104 [facility] Comment on above: Performed By: #### U KIKI, CMP, TSH3, LIPID, UA, CBC, PSAS #### [facility] [address] Aspartate aminotransferase [ Enzymatic activity/volume] in Serum or PlasmaOrdered By: Georgi Unger on 03-18-2025 AST [Catalytic activity/Vol] 16 U/L Normal 13-39 [facility] Comment on above: Performed By: #### U KIKI, CMP, TSH3, LIPID, UA, CBC, PSAS #### [facility] [address] Basophils [#/volume] in Bloo d by Automated countOrdered By: Georgi Unger on 03-18-2025 Basophils (Bld) [#/Vol] 0.0 10*3/uL Normal 0.0-0.2 [facility] Comment on above: Result Comment: PERF ORMED BY: [place] [address] PATHOLOGIST TOPOGRAPHICAL ENGINEER FIORDALIZA GROVER M.D. Performed By: #### U KIKI, CMP, TSH3, LIPID, UA, CBC, PSAS #### [facility] [address] [place] [address] Basophils/100 leukocytes in Blood by Automated countOrdered By: Georgi Unger on 03-18-2025 Basophils/100 WBC (Bld) 0.5 % Normal . [facility] Comment on above: Performed By: #### U KIKI, CMP, TSH3, LIPID, UA, CBC, PSAS #### [facility] [address] Bilirubin Test strip Ql (U)O rdered By: Georgi Unger on 03-18-2025 Bilirubin Ql (U) Negative Negative [facility] Bilirubin.total [Mass/volume ] in Serum or PlasmaOrdered By: Georgi Unger on 03-18-2025 Bilirubin [Mass/Vol] 0.4 mg/dL Normal 0.3-1.0 [facility] Comment on above: Performed By: #### U KIKI, CMP, TSH3, LIPID, UA, CBC, PSAS #### [facility] [address] [place] [address] [place] Calcium [Mass/volume] in Ser um or PlasmaOrdered By: Georgi Unger on 03-18-2025 Calcium [Mass/Vol] 9.4 mg/dL Normal 8.6-10.3 [facility] Comment on above: Performed By: #### U KIKI, CMP, TSH3, LIPID, UA, CBC, PSAS #### [facility] [address] [place] [address] [place] Carbon dioxide, total [Moles /volume] in Serum or PlasmaOrdered By: Georgi Unger on 03-18-2025 CO2 [Moles/Vol] 29.5 mmol/L Normal 21.0-31.[address] [facility] Comment on above: Performed By: #### U KIKI, CMP, TSH3, LIPID, UA, CBC, PSAS #### [facility] [address] [place] [address] [place] Chloride [Moles/volume] in S erick or PlasmaOrdered By: Georgi Unger on 03-18-2025 Chloride [Moles/Vol] 105 mmol/L Normal 98-107 [facility] Comment on above: Performed By: #### U KIKI, CMP, TSH3, LIPID, UA, CBC, PSAS #### [facility] [address] [place] [address] [place] Cholesterol [Mass/volume] in Serum or PlasmaOrdered By: Georgi Unger on 03-18-2025 Cholesterol [Mass/Vol] 181 mg/dL Normal 140-200 [facility] Comment on above: Chol less than 200 m g/dl low riskChol 201-239 mg/dl borderline riskChol 240 mg/dl and greater high risk Result Comment: Chol less than 200 mg/dl low risk Chol 201-239 mg/dl borderline risk Chol 240 mg/dl and greater high risk Performed By: #### U KIKI, CMP, TSH3, LIPID, UA, CBC, PSAS #### [facility] [address] [place] [address] [place] Cholesterol in HDL [Mass/vol ume] in Serum or PlasmaOrdered By: Georgi Unger on 03-18-2025 Cholesterol in HDL [Mass/Vol] 30 mg/dL Normal 23-92 [facility] Comment on above: HDL CHOL ATP-III CLA SSIFICATION Cardiovascular RiskHDL > or equal to 60 mg/dL LOWHDL < 40 mg/dL HIGH Result Comment: HDL CHOL ATP-III CLASSIFICATION Cardiovascular Risk HDL > or equal to 60 mg/dL LOW HDL < 40 mg/dL HIGH Performed By: #### U KIKI, CMP, TSH3, LIPID, UA, CBC, PSAS #### [facility] [address] Cholesterol in LDL Calc [Mas s/Vol]Ordered By: Georgi Unger on 03-18-2025 Cholesterol in LDL [Mass/Vol] 84 mg/dL 0-100 [facility] Comment on above: LDL ATP III CLASSIFI CATIONLDL less than 100 mg/dL OptimalLDL 100-129 mg/dL Near or above optimalLDL 130-159 mg/dL Borderline highLDL 160-189 mg/dL HighLDL greater than 189 mg/dL Very high Cholesterol in VLDL Calc [Ma ss/Vol]Ordered By: Georgi Unger on 03-18-2025 Cholesterol in VLDL [Mass/Vol] 67 mg/dL [facility] Color of Urine by AutoOrdere d By: Georgi Unger on 03-18-2025 Color (U) Yellow Normal Yellow [facility] Comment on above: Order Comment: Name Collection Type:: Clean-Voided Midstream Performed By: #### U KIKI, CMP, TSH3, LIPID, UA, CBC, PSAS #### [address] Complete Blood Count Auto Di ffon 03-18-2025 Mean Corpuscular HGB Conc 33.6 g/dL Normal 32.5-35.6 [facility] Comment on above: Performed By: #### U KIKI, CMP, TSH3, LIPID, UA, CBC, PSAS #### [facility] [address] NRBC% 0.1 /100{WBC} Normal 0-0.5 [facility] Comment on above: Performed By: #### U KIKI, CMP, TSH3, LIPID, UA, CBC, PSAS #### [facility] [address] White Blood Count 7.1 [CFU]/mL Normal 4.1-10.5 [facility] Comment on above: Performed By: #### U KIKI, CMP, TSH3, LIPID, UA, CBC, PSAS #### [address] Comprehensive Metabolic Pane jose carlos 03-18-2025 Albumin [Mass/Vol] 4.6 g/dL Normal 3.5-5.7 [facility] Comment on above: Performed By: #### U KIKI, CMP, TSH3, LIPID, UA, CBC, PSAS #### [place] [address] [place] GFR/1.73 sq M.predicted MDRD (S/P/Bld) [Vol rate/Area] mL/min/{1.73_m2} Normal [facility] Comment on above: Performed By: #### U KIKI, CMP, TSH3, LIPID, UA, CBC, PSAS #### [address] Creatinine [Mass/volume] in Serum or PlasmaOrdered By: Georgi Unger on 03-18-2025 Creatinine [Mass/Vol] 1.13 mg/dL Normal 0.70-1.30 [facility] Comment on above: Performed By: #### U KIKI, CMP, TSH3, LIPID, UA, CBC, PSAS #### [address] Eosinophils [#/volume] in Bl ood by Automated countOrdered By: Georgi Unger on 03-18-2025 Eosinophils (Bld) [#/Vol] 0.1 10*3/uL Normal 0.0-0.45 [facility] Comment on above: Performed By: #### U KIKI, CMP, TSH3, LIPID, UA, CBC, PSAS #### [place] [address] [place] Eosinophils/100 leukocytes i n Blood by Automated countOrdered By: Georgi Unger on 03-18-2025 Eosinophils/100 WBC (Bld) 1.0 % Normal . [facility] Comment on above: Performed By: #### U KIKI, CMP, TSH3, LIPID, UA, CBC, PSAS #### [facility] [address] Erythrocyte distribution wid th [Ratio] by Automated countOrdered By: Georgi Unger on 03-18-2025 Erythrocyte distribution width (RBC) [Ratio] 12.8 % Normal 12.0-14.8 [facility] Comment on above: Performed By: #### U KIKI, CMP, TSH3, LIPID, UA, CBC, PSAS #### [facility] [address] Erythrocytes [#/volume] in B lood by Automated countOrdered By: Georgi Unger on 03-18-2025 RBC (Bld) [#/Vol] 5.03 10*6/uL Normal 3.90-5.60 [facility] Comment on above: Performed By: #### U KIIK, CMP, TSH3, LIPID, UA, CBC, PSAS #### [address] Glomerular filtration rate [ Volume Rate/Area] in Serum, Plasma or Blood by CreatinineOrdered By: Georgi Unger on 03-18-2025 Glomerular filtration rate [Volume Rate/Area] in Serum, Plasma or Blood by Creatinine > 60.0 mL/Min [facility] Glucose [Mass/volume] in Ser um or PlasmaOrdered By: Georgi Unger on 03-18-2025 Glucose [Mass/Vol] 101 mg/dL High 70-100 [facility] Comment on above: ADA recommended refe rence rangeRandom Glucose Reference Range is dependent on time and content of last meal. Glucose of more than 200 mg/dL in a nonstressed, ambulatory subject supports the diagnosis of Diabetes Mellitus. Result Comment: Petty om Glucose Reference Range is dependent on time and content of last meal. Glucose of more than 200 mg/dL in a nonstressed, ambulatory subject supports the diagnosis of Diabetes Mellitus. ADA recommended reference range Performed By: #### U KIKI, CMP, TSH3, LIPID, UA, CBC, PSAS #### [address] Hematocrit [Volume Fraction] of Blood by Automated countOrdered By: Georgi Unger on 03-18-2025 Hematocrit (Bld) [Volume fraction] 43.0 % Normal 38.8-50.0 [facility] Comment on above: Performed By: #### U KIKI, CMP, TSH3, LIPID, UA, CBC, PSAS #### [facility] [address] Hemoglobin [Mass/volume] in BloodOrdered By: Georgi Unger on 03-18-2025 Hemoglobin (Bld) [Mass/Vol] 14.4 g/dL Normal 13.0-17.0 [facility] Comment on above: Performed By: #### U KIKI, CMP, TSH3, LIPID, UA, CBC, PSAS #### [facility] [address] Ketones [Presence] in Urine by Test stripOrdered By: Georgi Unger on 03-18-2025 Ketones Ql (U) Negative Normal Negative [facility] Comment on above: Order Comment: Name Collection Type:: Clean-Voided Midstream Performed By: #### U KIKI, CMP, TSH3, LIPID, UA, CBC, PSAS #### [facility] [address] [place] [address] [place] Leukocyte esterase [Presence ] in Urine by Test stripOrdered By: Georgi Unger on 03-18-2025 Leukocyte esterase Test strip Ql (U) Negative Normal Negative [facility] Comment on above: Order Comment: Name Collection Type:: Clean-Voided Midstream Performed By: #### U KIKI, CMP, TSH3, LIPID, UA, CBC, PSAS #### [place] [address] [place] Leukocytes [#/volume] correc jose luis for nucleated erythrocytes in Blood by Automated counOrdered By: Georgi Unger on 03-18-2025 WBC corrected for nucl RBC Auto (Bld) [#/Vol] 7.1 10*3/uL 4.1-10.5 [facility] Leukocytes [#/volume] in Blo od by Automated countOrdered By: Georgi Unger on 03-18-2025 WBC (Bld) [#/Vol] 7.1 10*3/uL Normal 4.1-10.5 [facility] Comment on above: Performed By: #### U KIKI, CMP, TSH3, LIPID, UA, CBC, PSAS #### [facility] [address] Lipid Panelon 03-18-2025 LDL Cholesterol,Calculated 84 mg/dL Normal 0-100 [facility] Comment on above: Result Comment: LDL ATP III CLASSIFICATION LDL less than 100 mg/dL Optimal LDL 100-129 mg/dL Near or above optimal LDL 130-159 mg/dL Borderline high LDL 160-189 mg/dL High LDL greater than 189 mg/dL Very high Performed By: #### U KIKI, CMP, TSH3, LIPID, UA, CBC, PSAS #### [facility] [address] Triglyceride w/Reflex 335 mg/dL High 0-149 [facility] Comment on above: Result Comment: TRIG ATP III CLASSIFICATION TRIG less than 150 mg/dL Normal TRIG 150-199 mg/dL Borderline high TRIG 200-500 mg/dL High TRIG greater than 500 mg/dL Very high Standard traceable to the Center for Disease Conrtrol and Prevention (CDC) test method. Performed By: #### U KIKI, CMP, TSH3, LIPID, UA, CBC, PSAS #### [address] VLDL CHOLESTEROL 67 mg/dL Normal [facility] Comment on above: Performed By: #### U KIKI, CMP, TSH3, LIPID, UA, CBC, PSAS #### [facility] [address] Lymphocytes [#/volume] in Bl ood by Automated countOrdered By: Georgi Unger on 03-18-2025 Lymphocytes (Bld) [#/Vol] 2.1 10*3/uL Normal 1.00-4.8 [facility] Comment on above: Performed By: #### U KIKI, CMP, TSH3, LIPID, UA, CBC, PSAS #### [facility] [address] [place] [address] [place] Lymphocytes/100 leukocytes i n Blood by Automated countOrdered By: Georgi Unger on 03-18-2025 Lymphocytes/100 WBC (Bld) 30.4 % Normal . [facility] Comment on above: Performed By: #### U KIKI, CMP, TSH3, LIPID, UA, CBC, PSAS #### [facility] [address] MCH [Entitic mass] by Automa jose luis countOrdered By: Georgi Unger on 03-18-2025 MCH (RBC) [Entitic mass] 28.7 pg Normal 27.5-35.2 [facility] Comment on above: Performed By: #### U KIKI, CMP, TSH3, LIPID, UA, CBC, PSAS #### [facility] [address] MCHC Auto (RBC) [Mass/Vol]Or dered By: Georgi Unger on 03-18-2025 MCHC (RBC) [Mass/Vol] 33.6 g/dL 32.5-35.6 [facility] MCV [Entitic volume] by Auto mated countOrdered By: Georgi Unger on 03-18-2025 MCV (RBC) [Entitic vol] 85.4 fL Normal 83.5-101 [facility] Comment on above: Performed By: #### U KIKI, CMP, TSH3, LIPID, UA, CBC, PSAS #### [address] Monocytes [#/volume] in Bloo d by Automated countOrdered By: Georgi Unger on 03-18-2025 Monocytes (Bld) [#/Vol] 0.5 10*3/uL Normal 0.0-0.8 [facility] Comment on above: Performed By: #### U KIKI, CMP, TSH3, LIPID, UA, CBC, PSAS #### [facility] [address] [place] [address] [place] Monocytes/100 leukocytes in Blood by Automated countOrdered By: Georgi Unger on 03-18-2025 Monocytes/100 WBC (Bld) 6.4 % Normal . [facility] Comment on above: Performed By: #### U KIKI, CMP, TSH3, LIPID, UA, CBC, PSAS #### [facility] [address] [place] [id number] [place] Neutrophils [#/volume] in Bl ood by Automated countOrdered By: Georgi Unger on 03-18-2025 Neutrophils (Bld) [#/Vol] 4.4 10*3/uL Normal 1.8-7.7 [facility] Comment on above: Performed By: #### U KIKI, CMP, TSH3, LIPID, UA, CBC, PSAS #### [facility] [address] [place] [address] [place] Neutrophils/100 leukocytes i n Blood by Automated countOrdered By: Georgi Unger on 03-18-2025 Neutrophils/100 WBC (Bld) 61.7 % Normal . [facility] Comment on above: Performed By: #### U KIKI, CMP, TSH3, LIPID, UA, CBC, PSAS #### [facility] [address] Nitrite Test strip Ql (U)Ord ered By: Georgi Unger on 03-18-2025 Nitrite Ql (U) Negative Negative [facility] No Panel InformationOrdered By: Georgi Unger on 03-18-2025 Pharmacy Creatinine Clearance (Chem N/A [facility] Nucleated erythrocytes [Pres ence] in Blood by Automated countOrdered By: Georgi Unger on 03-18-2025 Nucleated RBC Auto Ql (Bld) 0.1 /100{WBC} 0-0.5 [facility] PSA Screen (Yearly Only)on 0 03-18-2025 PSA Screen (Yearly Only) 0.650 ng/mL Normal 0.000-4.00 0 [facility] Comment on above: Order Comment: Is pa tient <50 yrs? Medicare does not pay <50.: Y What is the date of the last PSA Screen?: NONE Is Medicare the insurance?: N Did you verify eligibility (Dx Time) check TestViewGp: YES TO ALL Result Comment: Dwayne munoz tumor marker results determined by assays using different manufacturers or methods may not be comparable. [facility] Laboratory operations support representative and method: [employer] DXI, CHEMILUMINESCENT IMMUNOASSAY. PERFORMED BY: [place] [address] PATHOLOGIST TOPOGRAPHICAL ENGINEER FIORDALIZA GROVER M.D. Performed By: #### U KIKI, CMP, TSH3, LIPID, UA, CBC, PSAS #### [facility] [address] [place] [address] [place] Platelet mean volume [Entiti c volume] in Blood by Automated countOrdered By: Georgi Unger on 03-18-2025 Platelet mean volume (Bld) [Entitic vol] 8.7 fL Normal 6.6-10.1 [facility] Comment on above: Performed By: #### U KIKI, CMP, TSH3, LIPID, UA, CBC, PSAS #### [facility] [address] Platelets [#/volume] in Bloo d by Automated countOrdered By: Georgi Unger on 03-18-2025 Platelets (Bld) [#/Vol] 236 10*3/uL Normal 150-450 [facility] Comment on above: Performed By: #### U KIKI, CMP, TSH3, LIPID, UA, CBC, PSAS #### [address] Potassium [Moles/volume] in Serum or PlasmaOrdered By: Georgi Unger on 03-18-2025 Potassium [Moles/Vol] 4.2 mmol/L Normal 3.5-5.1 [facility] Comment on above: Performed By: #### U KIKI, CMP, TSH3, LIPID, UA, CBC, PSAS #### [address] Prostate specific Ag [Mass/v olume] in Serum or PlasmaOrdered By: Georgi Unger on 03-18-2025 Prostate specific Ag [Mass/Vol] 0.650 ng/mL 0.000-4.000 [facility] Comment on above: Serial tumor marker results determined by assays using different manufacturers or methods may not be comparable.[facility] operations support representative and method:[employer] DXI, CHEMILUMINESCENT IMMUNOASSAY. Protein Test strip (U) [Mass /Vol]Ordered By: Georgi Unger on 03-18-2025 Protein (U) [Mass/Vol] Negative Negative [facility] Protein [Mass/volume] in Ser um or PlasmaOrdered By: Georgi Unger on 03-18-2025 Protein [Mass/Vol] 7.1 g/dL Normal 6.4-8.9 [facility] Comment on above: Performed By: #### U KIKI, CMP, TSH3, LIPID, UA, CBC, PSAS #### [address] RBC Test strip (U) [#/Vol]Or dered By: Georgi Unger on 03-18-2025 RBC (U) [#/Vol] Negative Negative [facility] Serum globulin measurement b y calculation (mass/volume)Ordered By: Georgi Unger on 03-18-2025 Globulin (S) [Mass/Vol] 2.5 g/dL Normal [facility] Comment on above: Performed By: #### U KIKI, CMP, TSH3, LIPID, UA, CBC, PSAS #### [address] Serum or plasma albumin/glob ulin mass ratioOrdered By: Georgi Unger on 03-18-2025 Albumin/Globulin [Mass ratio] 1.8 {ratio} Normal [facility] Comment on above: Performed By: #### U KIKI, CMP, TSH3, LIPID, UA, CBC, PSAS #### [address] Serum or plasma anion gap de terminationOrdered By: Georgi Unger on 03-18-2025 Anion gap [Moles/Vol] 9.7 mmol/L Normal 6.0-15.0 [facility] Comment on above: Performed By: #### U KIKI, CMP, TSH3, LIPID, UA, CBC, PSAS #### [facility] [address] [place] [address] Serum or plasma total choles terol/high density lipoprotein (HDL) cholesterol mass ratOrdered By: Georgi Unger on 03-18-2025 Cholesterol.total/Choles terol in HDL [Mass ratio] 6.0 {ratio} Normal <5.0 [facility] Comment on above: Performed By: #### U KIKI, CMP, TSH3, LIPID, UA, CBC, PSAS #### [facility] [address] Sodium [Moles/volume] in Ser um or PlasmaOrdered By: Georgi Unger on 03-18-2025 Sodium [Moles/Vol] 140 mmol/L Normal 136-145 [facility] Comment on above: Performed By: #### U KIKI, CMP, TSH3, LIPID, UA, CBC, PSAS #### [facility] [address] Specific gravity Test strip (U) [Rel density]Ordered By: Georgi Unger on 03-18-2025 Specific gravity (U) [Rel density] 1.020 1.001-1.030 [facility] Thyrotropin [Units/volume] i n Serum or PlasmaOrdered By: Georgi Unger on 03-18-2025 TSH Qn 2.15 m[IU]/L Normal 0.45-5.33 [facility] Comment on above: Result Comment: PERF ORMED BY: [place] [address] PATHOLOGIST TOPOGRAPHICAL ENGINEER FIORDALIZA GROVER M.D. Performed By: #### U KIKI, CMP, TSH3, LIPID, UA, CBC, PSAS #### [address] Triglyceride [Mass/volume] i n Serum or PlasmaOrdered By: Georgi Unger on 03-18-2025 Triglyceride [Mass/Vol] 335 mg/dL High 0-149 [facility] Comment on above: TRIG ATP III CLASSIF ICATIONTRIG less than 150 mg/dL NormalTRIG 150-199 mg/dL Borderline highTRIG 200-500 mg/dL High TRIG greater than 500 mg/dL Very highStandard traceable to the Center for Disease Conrtrol and Prevention (CDC) test method. Urate [Mass/volume] in Serum or PlasmaOrdered By: Georgi Unger on 03-18-2025 Urate [Mass/Vol] 8.0 mg/dL High 4.4-7.[address] [facility] Comment on above: Performed By: #### U KIKI, CMP, TSH3, LIPID, UA, CBC, PSAS #### [address] Urea nitrogen [Mass/volume] in Serum or PlasmaOrdered By: Georgi Unger on 03-18-2025 Urea nitrogen [Mass/Vol] 20 mg/dL Normal 01-15 [facility] Comment on above: Performed By: #### U KIKI, CMP, TSH3, LIPID, UA, CBC, PSAS #### [address] Urinalysison 03-18-2025 Bilirubin,Urine Negative Normal Negative [facility] Comment on above: Order Comment: Name Collection Type:: Clean-Voided Midstream Performed By: #### U KIKI, CMP, TSH3, LIPID, UA, CBC, PSAS #### [address] Glucose Ql (U) Normal Normal Normal [facility] Comment on above: Order Comment: Name Collection Type:: Clean-Voided Midstream Performed By: #### U KIKI, CMP, TSH3, LIPID, UA, CBC, PSAS #### [address] Nitrite,Urine Negative Normal Negative [facility] Comment on above: Order Comment: Name Collection Type:: Clean-Voided Midstream Performed By: #### U KIKI, CMP, TSH3, LIPID, UA, CBC, PSAS #### [address] Occult Blood,Urine Negative Normal Negative [facility] Comment on above: Order Comment: Name Collection Type:: Clean-Voided Midstream Result Comment: PERF ORMED BY: [place] [address] PATHOLOGIST TOPOGRAPHICAL ENGINEER FIORDALIZA GROVER M.D. Performed By: #### U KIKI, CMP, TSH3, LIPID, UA, CBC, PSAS #### [address] Protein,Urine Negative Normal Negative [facility] Comment on above: Order Comment: Name Collection Type:: Clean-Voided Midstream Performed By: #### U KIKI, CMP, TSH3, LIPID, UA, CBC, PSAS #### [address] Specificy [place],Urine 1.020 Normal 1.001-1.030 [facility] Comment on above: Order Comment: Name Collection Type:: Clean-Voided Midstream Performed By: #### U KIKI, CMP, TSH3, LIPID, UA, CBC, PSAS #### [address] Urobilinogen,Urine Normal Normal Normal [facility] Comment on above: Order Comment: Name Collection Type:: Clean-Voided Midstream Performed By: #### U KIKI, CMP, TSH3, LIPID, UA, CBC, PSAS #### [address] Urine appearance determinati onOrdered By: Georgi Unger on 03-18-2025 Appearance (U) Clear Normal Clear [facility] Comment on above: Order Comment: Name Collection Type:: Clean-Voided Midstream Performed By: #### U KIKI, CMP, TSH3, LIPID, UA, CBC, PSAS #### [address] Urine glucose measurement by automated test strip (mass/volume)Ordered By: Georgi Unger on 03-18-2025 Glucose Auto test strip (U) [Mass/Vol] Normal mg/dL Normal [facility] Urobilinogen Test strip (U) [Mass/Vol]Ordered By: Georgi Unger on 03-18-2025 Urobilinogen (U) [Mass/Vol] Normal mg/dL Normal [facility] pH of Urine by Test stripOrd ered By: Georgi Unger on 03-18-2025 pH (U) 6.0 [pH] Normal 5.0-9.0 [facility] Comment on above: Order Comment: Name Collection Type:: Clean-Voided Midstream Performed By: #### U KIKI, CMP, TSH3, LIPID, UA, CBC, PSAS #### [address] Automated epithelial cells c ount in urine sediment (number/area)on 09-14-2023 Epithelial cells Auto (Urine sed) [#/Area] RARE #/LPF NONE/RARE [facility] Automated leukocytes count i n urine sediment (number/area)on 09-14-2023 WBC Auto (Urine sed) [#/Area] NONE SEEN #/HPF 0-2 [facility] Automated urine specific gra vity by refractometryon 09-14-2023 Specific gravity Refractometry automated (U) [Rel density] 1.025 1.005-1.025 [facility] Basophils Auto (Bld) [#/Vol] on 09-14-2023 Basophils (Bld) [#/Vol] 0.1 10 3/uL 0.0-0.1 [facility] Basophils/100 WBC Auto (Bld) on 09-14-2023 Basophils/100 WBC (Bld) 0.7 % 0.2-2.0 [facility] Bilirubin Auto test strip (U ) [Mass/Vol]on 09-14-2023 Bilirubin (U) [Mass/Vol] Negative NEGATIVE [facility] Casts typing in urine sedime nt by light microscopyon 09-14-2023 Casts LM Nom (Urine sed) NONE SEEN #/LPF NONE S EEN [facility] Cholesterol in LDL Calc [Mas s/Vol]on 09-14-2023 Cholesterol in LDL [Mass/Vol] 85.0 mg/dL [facility] Comment on above: <100 mg/dl [id number] 0-129 mg/dl NEAR OR ABOVE [id number] mg/dl BORDERLINE [id number] mg/dl HIGH>190 mg/dl VERY HIGH Cholesterol in VLDL Calc [Ma ss/Vol]on 09-14-2023 Cholesterol in VLDL [Mass/Vol] 42.8 mg/dL [facility] Color Auto (U)on 09-14-2023 Color (U) LT. YELLOW YELLOW [facility] Eosinophils/100 WBC Auto (Bl d)on 09-14-2023 Eosinophils/100 WBC (Bld) 2.3 % 0.9-7.0 [facility] Erythrocyte distribution wid th Auto (RBC) [Ratio]on 09-14-2023 Erythrocyte distribution width (RBC) [Ratio] 12.3 % 11.0-15.0 [facility] Estimated glomerular filtrat ion rate (GFR) non- Americanon 09-14-2023 GFR/1.73 sq M.predicted among non-blacks MDRD (S/P/Bld) [Vol rate/Area] mL/min/{1.73_m2} >=60 [facility] Globulin Calc (S) [Mass/Vol] on 09-14-2023 Globulin (S) [Mass/Vol] 3.4 g/dL [facility] Hematocrit Auto (Bld) [Volum e fraction]on 09-14-2023 Hematocrit (Bld) [Volume fraction] 43.8 % 42.0-54.0 [facility] Hemoglobin [Mass/volume] in Bloodon 09-14-2023 Hemoglobin (Bld) [Mass/Vol] 14.1 g/dL 14.0-18.0 [facility] Ketones Auto test strip (U) [Mass/Vol]on 09-14-2023 Ketones (U) [Mass/Vol] Negative NEGATIVE [facility] Laboratory - Chemistry and C hemistry - challengeon 09-14-2023 Albumin [Mass/Vol] 3.9 g/dL 3.4-5.0 [facility] ALP [Catalytic activity/Vol] 60 U/L 46-116 [facility] ALT [Catalytic activity/Vol] 23 U/L 16-63 [facility] AST [Catalytic activity/Vol] 15 U/L 15-37 [facility] Bilirubin [Mass/Vol] 0.4 mg/dL 0.2-1.0 [facility] Calcium [Mass/Vol] 9.0 mg/dL 8.5-10.1 [facility] Chloride [Moles/Vol] 104 mmol/L 98-107 [facility] Cholesterol [Mass/Vol] 163 mg/dL <=200 [facility] Cholesterol in HDL [Mass/Vol] 36 mg/dL 40-60 [facility] Comment on above: > or =60 mg/dl - LOW CARDIOVASCULAR RISK<40 mg/dl - HIGH CARDIOVASCULAR RISK CO2 [Moles/Vol] 30.4 mmol/L 21.0-32.[address] [facility] Creatinine [Mass/Vol] 1.06 mg/dL 0.70-1.30 [facility] GFR/1.73 sq M.predicted MDRD (S/P/Bld) [Vol rate/Area] mL/min/{1.73_m2} >=60 [facility] Glucose [Mass/Vol] 101 mg/dL 74-106 [facility] Potassium [Moles/Vol] 4.0 mmol/L 3.5-5.1 [facility] Protein [Mass/Vol] 7.3 g/dL 6.4-8.2 [facility] Sodium [Moles/Vol] 143 mmol/L 136-145 [facility] Triglyceride [Mass/Vol] 214 mg/dL <=150 [facility] TSH Qn 2.272 m[IU]/L 0.358-3.740 [facility] Urate [Mass/Vol] 6.7 mg/dL 3.5-7.[address] [facility] Urea nitrogen [Mass/Vol] 13.0 mg/dL 7.0-18.0 [facility] Urea nitrogen/Creatinine [Mass ratio] 12.3 mg/mg [facility] Laboratory - Hematology and Cell countson 09-14-2023 Immature granulocytes/100 WBC (Bld) 0.4 % 0.0-0.5 [facility] Leukocytes [#/volume] correc jose luis for nucleated erythrocytes in Blood by Automated counon 09-14-2023 WBC corrected for nucl RBC Auto (Bld) [#/Vol] 7.4 10 3/uL 4.0-11.0 [facility] Lymphocytes Auto (Bld) [#/Vo l]on 09-14-2023 Lymphocytes (Bld) [#/Vol] 2.6 10 3/uL 1.2-3.8 [facility] Lymphocytes/100 WBC Auto (Bl d)on 09-14-2023 Lymphocytes/100 WBC (Bld) 35.2 % 20.5-60.0 [facility] MCH Auto (RBC) [Entitic mass ]on 09-14-2023 MCH (RBC) [Entitic mass] 28.0 pg 25.9-34.0 [facility] MCHC Auto (RBC) [Mass/Vol]on 09-14-2023 MCHC (RBC) [Mass/Vol] 32.2 g/dL 29.9-35.2 [facility] MCV Auto (RBC) [Entitic vol] on 09-14-2023 MCV (RBC) [Entitic vol] 87.1 fL 80.0-94.0 [facility] Monocytes Auto (Bld) [#/Vol] on 09-14-2023 Monocytes (Bld) [#/Vol] 0.6 10 3/uL 0.3-0.8 [facility] Monocytes/100 WBC Auto (Bld) on 09-14-2023 Monocytes/100 WBC (Bld) 7.6 % 1.7-12.0 [facility] Mucus LM Ql (Urine sed)on Mucus Ql (Urine sed) NONE SEEN NONE SEEN [facility] Neutrophils Auto (Bld) [#/Vo l]on 09-14-2023 Neutrophils (Bld) [#/Vol] 4.0 10 3/uL 1.4-6.5 [facility] Neutrophils/100 WBC Auto (Bl d)on 09-14-2023 Neutrophils/100 WBC (Bld) 53.8 % 43.0-75.0 [facility] No Panel Informationon 09-13 Eosinophils # (Auto) 0.2 10 3/uL 0.0-0.7 [facility] Immature Granulocyte # (Auto) 0.03 10 3/uL 0.00-0.03 [facility] Platelet mean volume Auto (B ld) [Entitic vol]on 09-14-2023 Platelet mean volume (Bld) [Entitic vol] 9.5 fL 9.5-13.5 [facility] Platelets Auto (Bld) [#/Vol] on 09-14-2023 Platelets (Bld) [#/Vol] 221 10 3/uL 150-450 [facility] Protein Auto test strip (U) [Mass/Vol]on 09-14-2023 Protein (U) [Mass/Vol] Negative [facility] RBC Auto (Bld) [#/Vol]on RBC (Bld) [#/Vol] 5.03 10 6/uL 4.70-6.10 [facility] Serum or plasma albumin/glob ulin mass ratioon 09-14-2023 Albumin/Globulin [Mass ratio] 1.1 {ratio} [facility] Serum or plasma anion gap de terminationon 09-14-2023 Anion gap [Moles/Vol] 12.6 mmol/L [facility] Serum or plasma total choles terol/high density lipoprotein (HDL) cholesterol mass joseph 09-14-2023 Cholesterol.total/Choles terol in HDL [Mass ratio] 4.5 {ratio} [facility] Comment on above: 3.3 - 4.4 LOW RISK4. 4 - 7.1 AVERAGE RISK7.1 - 11.0 MODERATE RISK>11.0 HIGH RISK Specific gravity Auto test s trip (U) [Rel density]on 09-14-2023 Specific gravity (U) [Rel density] CLEAR CLEAR [facility] Urine bacteria detection by automated methodon 09-14-2023 Bacteria Auto Ql (U) NONE SEEN #/HPF NONE SEEN [facility] Urine glucose measurement by test strip (mass/volume)on 09-14-2023 Glucose Test strip (U) [Mass/Vol] Negative NEGATIVE [facility] Urine hemoglobin detection b y automated test stripon 09-14-2023 Hemoglobin Auto test strip Ql (U) Negative NEGATIVE [facility] Urine nitrite detection by a utomated test stripon 09-14-2023 Nitrite Auto test strip Ql (U) Negative NEGATIVE [facility] Urine sediment crystal ident ification by light microscopyon 09-14-2023 Crystals LM Nom (Urine sed) None Seen #/HPF None Seen [facility] Urine sediment leukocyte cou nt by microscopy (number/high power field)on 09-14-2023 WBC LM.HPF (Urine sed) [#/Area] NONE SEEN #/HPF NONE SEEN [facility] Urobilinogen Auto test strip (U) [Mass/Vol]on 09-14-2023 Urobilinogen Qn (U) 0.2 {Isidro'U}/dL 0.2-1.0 [facility] pH Auto test strip (U)on pH (U) 6.0 [pH] 5.0-9.[address] [facility] [address] CSPINE WO CONon CT CSPINE WO CON EXAMINATION: CT CSPI [...] by: KINZA MORFIN Date: 2022-06-13 14:31 Normal [facility] CT HEAD WO CONon 06-13-2022 CT HEAD [...] by: ECTOR SHI Date: 2022-06-13 14:23 Normal [facility] PROGRESSon 08-18-2019 PROGRESS HNO ID: [id number] Author: Starla Villanueva (Lab) Service: ? Author Type: Technologist Type: Progress Notes Filed: 08/18/2019 1:40 PM Note Text: [employer] One Year DELISA Najera Normal [facility] Semen W/Uon 2018 % Motile Sperm 72 % Normal >40 [facility] Comment on above: Performed By: #### B ESMNR #### [facility] [address] [place], [place] [address] Abnormal Head 90 % Normal [facility] Comment on above: Performed By: #### B ESMNR #### [facility] [address] [place], [place] [address] Abnormal Tails 4 % Normal [facility] Comment on above: Performed By: #### B ESMNR #### [facility] [address] [place], [place] [address] Abstinence Time 2.5 Days Normal [facility] Comment on above: Performed By: #### B ESMNR #### [facility] [address] [place] [address] aPTT Coag (Bld) [Time] 1135/EVALUATION T BECKIE 1200 Normal [facility] Comment on above: Performed By: #### B ESMNR #### [facility] [address] [place], [place] [address] Collection Time 1135 Normal [facility] Comment on above: Performed By: #### B ESMNR #### [facility] [address] [place], [place] [address] Concentration 64 M/mL Normal >15 [facility] Comment on above: Performed By: #### B ESMNR #### [facility] [address] [place], [place] [address] Date Of Analysis IVF SEMEN ANALYSIS 08/27/18 Normal [facility] Comment on above: Performed By: #### B ESMNR #### [facility] [address] [place], [place] [address] Forward Progression [address] [facility] Comment on above: Result Comment: (NOT E) INTERPRETATION: 0 = No motility 1 = Weak, twitching in place 2 = Poor to moderate, erratic 3 = Good motility, unidirectional 4 = Rapid unidirectional Performed By: #### B ESMNR #### [facility] [employer] [address] [place], [place] [address] Semen Color Normal Normal [facility] Comment on above: Performed By: #### B ESMNR #### [facility] [employer] [address] [place], [place] [address] Semen Comment 1 PARTNER=MARGARITA BALALRD Normal [facility] Comment on above: Result Comment: ANTI BODIES NEGATIVE IGG=0% IGA=0% Performed By: #### B ESMNR #### [facility] [address] [place], [place] [address] Semen Comment 2 2 VIALS FROZEN POST THAW MOTILITY 66% Normal [facility] Comment on above: Performed By: #### B ESMNR #### [facility] [address] [place], [place] [address] Semen pH 7.6 Normal >7.2 [facility] Comment on above: Performed By: #### B ESMNR #### [facility] [address] [place], [place] [address] Semen Viscosity Normal Normal [facility] Comment on above: Performed By: #### B ESMNR #### [facility] [address] [place], [place] [address] Semen Volume 1.4 mL Low >1.5 [facility] Comment on above: Result Comment: Test ing performed at the [facility]. Contact Dr. Flora Verdugo, PhD, [facility] for any questions ([phone]). Performed By: #### B ESMNR #### [facility] [employer] [address] [place], [place] [address] Sperm Diff (Dave) 6 % Normal >4 [facility] Comment on above: Performed By: #### B ESMNR #### [facility] [employer] [address] [place], [place] [address] Total Count Sperm 89.6 M Normal [facility] Comment on above: Performed By: #### B ESMNR #### [facility] [address] [place], [place] [address] Total Motile Sperm 64.51 M [facility] Comment on above: Performed By: #### B ESMNR #### [facility] [address] [place], [place] [address] [facility]-27-[facility] JUMANA BALLARD ([id number]) 1990 M Date Time Provider Department 08/27/18 11:00 AM NURSE CAROLYN [facility] ERIKA REIBD During your visit today, we recorded the following information about you: Referring Provider: SELF [200] Allergies As of Date: 08/27/2018 (Not on File) Date Reviewed: Never Reviewed Primary Visit Diagnosis:Fertility testing [Z31.41] Problem List As Of Date: 08/27/2018 (None) Encounter Status:Closed by BECCA GALVEZ MD on 09/17/[address] [facility] CNOVon 08-27-2018 CNOV Office Visit (ANDRBE ) JUMANA BALLARD ([id number]) 1990 M Date Time Provider Department 08/27/18 11:00 AM ANDROLOGY RADIOLOGIST DIAGNOSTIC ANDRBE During your visit today, we recorded the following information about you: DELISA Najera 08/27/2018 2:22 PM Signed IVF Semen Analysis Starla [place], LAB Referring Provider: SELF [200] Allergies As of Date: 08/27/2018 (Not on File) Date Reviewed: Never Reviewed Primary Visit Diagnosis:Fertility testing [Z31.41] Problem List As Of Date: 08/27/2018 (None) Encounter Status:Closed by STARLA VILLANUEVA on 08/27/18 Normal [facility] PROGRESSon 08-27-2018 PROGRESS HNO ID: [id number] Author: Starla (Lab) Jhoan Service: ? Author Type: Technologist Type: Progress Notes Filed: 08/27/2018 2:22 PM Note Text: IVF Semen Analysis Starla Villanueva LAB Normal [facility] Vital Signs Date Time Vital Sign Value Performing Clinician Facility 03-19-2025 11:04-0400 Diastolic blood pressure 90 mm[Hg] Georgi Unger DO Work Phone: [facility] 03-19-2025 11:04-0400 Systolic blood pressure 138 mm[Hg] Georgi Unger DO Work Phone: [facility] 03-19-2025 10:58-0400 Body height 177.8 cm Georgi Unger DO Work Phone: [facility] 03-19-2025 10:58-0400 Body mass index (BMI) [Ratio] 25 kg/m2 Georgi Unger DO Work Phone: [facility] 03-19-2025 10:58-0400 Body temperature 98.4 [degF] Georgi Unger DO Work Phone: [facility] 03-19-2025 10:58-0400 Body weight 78.92 kg Georgi Unger DO Work Phone: [facility] 03-19-2025 10:58-0400 Heart rate 80 /min Georgi Unger DO Work Phone: [facility] 03-19-2025 10:58-0400 SaO2% (BldA) [Mass fraction] 98 % Georgi Unger DO Work Phone: [facility] 09-16-2023 16:36-0400 Body height 177.8 cm [facility] 09-16-2023 16:36-0400 Body mass index (BMI) [Ratio] 25.8 kg/m2 [facility] 09-16-2023 16:36-0400 Body temperature 98.2 [degF] [facility] 09-16-2023 16:36-0400 Body weight 81.64 kg [facility] 09-16-2023 16:36-0400 Diastolic blood pressure 88 mm[Hg] [facility] 09-16-2023 16:36-0400 Heart rate 77 /min [facility] 09-16-2023 16:36-0400 Respiratory rate 18 /min [facility] 09-16-2023 16:36-0400 SaO2% (BldA) [Mass fraction] 97 % [facility] 09-16-2023 16:36-0400 Systolic blood pressure 130 mm[Hg] [facility] 07-04-2023 10:10-0500 Body height 177.8 cm Georgi Unger Other [facility] 06-29-2022 14:30-0500 Body height 177.8 cm Sherrie Shannen Other [facility] [employer] Other 06-29-2022 14:30-0500 Body mass index (BMI) [Ratio] 25.11 kg/m2 Sherrie Shannen Other [employer] Other 06-29-2022 14:30-0500 Body temperature 98.9 [degF] Sherrie Shannen Other [employer] Other 06-29-2022 14:30-0500 Body weight 79.38 kg Sherrie Shannen Other [employer] Other 06-29-2022 14:30-0500 Respiratory rate 18 /min Sherrie Shannen Other [employer] Other 06-29-2022 14:30-0500 SaO2% (BldA) [Mass fraction] 97 % Sherrie Pride Other [employer] Other 06-22-2022 11:10-0500 Body height 177.8 cm John Chow Other [employer] Other 06-22-2022 11:10-0500 Body mass index (BMI) [Ratio] 25.82 kg/m2 John Chow Other [employer] Other 06-22-2022 11:10-0500 Body temperature John Chow Other [employer] Other 06-22-2022 11:10-0500 Body weight 81.65 kg John Chow Other [employer] Other 06-22-2022 11:10-0500 Diastolic blood pressure 88 mm[Hg] John Chow Other [employer] Other 06-22-2022 11:10-0500 SaO2% (BldA) [Mass fraction] 97 % John Chow Other [employer] Other 06-22-2022 11:10-0500 Systolic blood pressure 146 mm[Hg] John Chow Other [employer] Other Encounters Encounter Date Encounter Type Care Provider Facility Start: 03-19-2025 End: 03-19-2025 ambulatory Georgi Unger DO Work Phone: [facility] Work Phone: Start: 03-19-2025 End: 03-19-2025 Patient encounter procedure Georgi C Girvin DO [facility] [place] Work Phone: Start: 03-19-2025 End: 03-19-2025 Patient encounter status Georgi Mchugh Yeniferradha OMER [facility] Start: 03-18-2025 End: 03-18-2025 ambulatory Georgi Unger DO Work Phone: [facility] Work Phone: Start: 03-18-2025 Encounter for genera l adult medical examination without abnormal findings Georgi Unger [facility] Start: 03-18-2025 End: 03-18-2025 Patient encounter procedure Georgi Lolita Unger [facility] [place] Work Phone: Start: 09-16-2023 Patient encounter status [facility] Start: 09-16-2023 End: 09-16-2023 ambulatory [facility] Work Phone: Start: 09-16-2023 End: 09-16-2023 Encounter for general adult medical examination without abnormal findings [facility] Start: 09-16-2023 End: 09-16-2023 Patient encounter procedure [facility] [place] Work Phone: Start: 09-14-2023 Non-patient / Non-visit [facility] Work Phone: Start: 07-25-2023 End: 07-25-2023 ambulatory Georgi Unger Other [employer] Other Start: 07-25-2023 Telephone encounter Georgi Unger [facility] [place] Start: 07-04-2023 End: 07-04-2023 ambulatory Georgi Unger Other [employer] Other Start: 07-04-2023 Encounter for genera l adult medical examination without abnormal findings Georgi Unger [facility] [place] Start: 07-04-2023 Telephone encounter Georgi Unger [facility] [place] Start: 07-04-2023 End: 07-04-2023 Patient encounter procedure [facility] [place] Work Phone: Start: 07-02-2023 End: 07-02-2023 ambulatory Georgi Unger Other [employer] Other Start: 07-02-2023 Telephone encounter Georgi Unger [facility] Start: 06-29-2022 End: 06-29-2022 ambulatory Sherrie Pride Other [employer] Other Start: 06-29-2022 Office outpatient vi sit 15 minutes Sherrie Pride [facility] Start: 06-22-2022 End: 06-22-2022 ambulatory John Chow Other [employer] Other Start: 06-22-2022 Office outpatient vi sit 15 minutes John Claudine [facility] [address] Start: 06-13-2022 End: 06-13-2022 ambulatory BRADFORD HARRIS Facility: Start: 03-26-2022 End: 03-26-2022 ambulatory Georgi Unger Other [employer] Other Start: 03-26-2022 Telephone encounter Georgi Unger [facility] Start: 11-14-2020 SEMFREEZE, Provider: ANDROLOGY TRINI LAYOB, Status: Pen, Time: 10:30 AM Sheri Reyes MD Work Phone: [id number] IVF Work Phone: Start: 11-13-2020 AUDIT Sheri Reyes MD Work Phone: [id number] [phone] IVF Work Phone: Plan of Treatment Date Care Activity Detail Author Start: 12-02-2020 SEMFREEZE, Provider: ANDROLOGY TRINI LAYOB, Status: Pen, Time: 11:30 AM SEMFREEZE, Provider: ANDROLOGY TRINI LAYOB, Status: Pen, Time: 11:30 AM [id number] IVF Work Phone: Comprehensive metabo lic 1999 panel - Serum or Plasma [facility] Immunizations Immunization Date Immunization Notes Care Provider Gama tompkins NEGATED: Highlighted row has not occurred!08-05-2017 influenza, injectable, quadrivalent, contains preservative Patient Objection Georgi Cornel Other [employer] Other Payers Date Payer Category Payer Self-pay [id number] 1990 Unknown [id number] Unknown [id number] Unknown [employer] Private Health Insurance [employer] [id number] Unknown [place] [id number] Unknown [id number] Social History Date Type Detail Facility Unknown if ever smoked [facility] Other Sex Assigned At Sex Assigned At Bir th [facility] Other Start: 09-16-2023 End: 03-19-2025 Tobacco smoking status NHIS Never smoked tobacco (finding) [facility] Start: 1990 Sex Assigned At Male F [facility] Sex Male (finding) [facility] Clinical Notes 07-25-2021 to 07-04-2023 Note Date & Type Note Facility [...] months and then it fell [place] the [place] and he did not follow-up after that. [...] Jun, Other 10:18 AM through 10:34 AM [facility] Other 01-09-2024 Evaluation note* Encounter Date Diagnosis Assessment Notes Treatment Notes Treatment Clinical Notes Jun, Elevated uric acid in blood (ICD-10 - E79.0) Jun, Left foot pain (ICD-10 - M79.672) [facility] Other 01-06-2023 Evaluation note* Encounter Date Diagnosis Assessment Notes Treatment Notes Treatment Clinical Notes Jun, Left otitis media, unspecified otitis [...] - H60.502) Jun, Bronchitis (ICD-10 - J40) [facility] Other 12-30-2022 Evaluation note* Encounter Date Diagnosis Assessment Notes Treatment Notes Treatment Clinical Notes May, Removal of primitivo (ICD-10 - Z48.02) 9 primitivo removed by ABRAHAM Spence with staple remover. Pt tolerated procedure well. [facility] Other 10-03-2022 Evaluation note* Encounter Date Diagnosis Assessment Notes Treatment Notes Treatment Clinical Notes Mar, Contact dermatitis (ICD-10 - L25.9) [...] on how to take the medication. Side effects/risks/bene fits of medication were reviewed. Use caution when in the sun, and do not lift anything that would place strain on his tendons. If he develops Achilles tendon pain stop the medication. Take medication with food. Mar, Other 1:06 PM - 1:11 PM [facility] Other 02-01-2022 History general Narrative - Reported* Type Description Date Medical History past hx of chickenpoxs Medical History COVID-19 07/2021 Surgical History wisdom teeth extracted 2015 [facility] Other Evaluation noteNo InformationNort [employer] Other Evaluation note* Diagnosis Onset Date Resolution Status Dyslipidemia acute Elevated blood uric acid level acute Idiopathic gout of left foot acute Tinea acute Wellness examination acute [facility] Work Phone: Evaluation noteNo assessment information available [facility] Work Phone: Evaluation note* Diagnosis Onset Date Resolution Status Admit Date Elevated blood uric acid level acute March 19, 2025 10:59am Encounter for prostate cance r screening acute March 19, 2025 10:59am Hyperglycemia acute February 232024 10:59am Hyperlipidemia acute March 19, 2025 10:59am Other abnormal blood chemistry acute March 19, 2025 10:59am Wellness examination acute Sept ember 2024 10:59am [facility] Work Phone: Reason for referral (narrative)No reason for referral information available[facility] Work Phone: Summary Purpose Family History No Family History Records Found Relationship Condition Age at Onset Recorded Date/T beckie grandparent Malignant neoplasm Unknown Family history of lung cancer Unknown Unknown grandparent Unknown Not Specified Diabetes mellitus Unknown Relationship Condition Age at Onset Recorded Date/T beckie grandparent Malignant neoplasm Unknown Family history of lung cancer Unknown Unknown grandparent Unknown mother Diabetes mellitus Unknown Advance Directives No Advanced Directives Records Found Advance Directive Response Recorded Date/ Time Advance Directives No August 01, 2017 12:32pm Advance Directive Response Recorded Date/ Time Advance Directives No February 7:10am Chief Complaint and Reason for Visit Chief Complaint Discuss Lab Results review labs/re evaluate gout Reason for Visit Dyslipidemia Elevated blood uric acid level Idiopathic gout of left foot Tinea Wellness examination Chief Complaint Admit Date wellness/review labs March 19 10:59am Reason for Visit Admit Date Elevated blood uric acid level March 19, 2025 10:59am Encounter for prostate cancer screening March 19, 2025 10:59am Hyperglycemia March 19, 2025 10:59am Hyperlipidemia March 19, 2025 10:59am Other abnormal blood chemistry March 19, 2025 10:59am Wellness examination March 19 10:59am Additional Source Comments (unrecognized sect ion and content) No Status Records FoundNo Status Records FoundNo Status Records Found INFORMATION SOURCE (unrecogn ized section and content) DATE CREATED AUTHOR 08/18/2019 [facility] DATE CREATED AUTHOR AUTHOR'S ORGANIZ ATION 06/20/2022 [facility] DATE CREATED AUTHOR AUTHOR'S ORGANIZ ATION 03/29/2025 [facility] REASON FOR VISIT (unrecogniz ed section and content) poison ivyREMOVE STAPLESEARA TREVOR, COUGH, CONGESTIONpossible goutDiscuss lab resultsfrom 07/18/23 Care Teams (unrecognized sec tion and content) Team Status: Active Member Role Status Dates Georgi Unger DO Primary Care Provider Active Team Status: Inactive Member Role Status Dates Georgi Unger DO Attending Provider Active Star t: July 04, 2023 End: July 04, 2023 Team Status: Active Member Role Status Dates Georgi Unger DO Primary Care Provide r, Attending Provider Active Start: September 14, 2023 Team Status: Inactive Member Role Status Zaira Unger DO Primary Care Provide r, Attending Provider Active Start: September 16, 2023 End: September 16, 2023 Team Status: Inactive Member Role Status Zaira Unger DO Primary Care Provider Active S tart: March 18, 2025 End: March 18, 2025 Georgi Unger DO Attending Provider Active Star t: March 18, 2025 End: March 18, 2025 Team Status: Inactive Member Role Status Zaira Unger DO Primary Care Provider Active S tart: March 19, 2025 End: March 19, 2025 Georgi Unger DO Attending Provider Active Star t: March 19, 2025 End: March 19, 2025 Goals (unrecognized section and content) Goals may be documented in a n alternate section FOR RECORDS PERTAINING TO PATIENTS WHO ARE [...] BE BASED ON THE PRIMARY CLINICAL RECORDS. [facility] [employer] [facility]. provides no warranty or guarantee of the accuracy or completeness of information in this document.
--- OUTSIDE RECORDS SUMMARY | 2025-03-29 12:36 | XMS_ITS | Clinical Summary ---
Author Organization [facility] Address [address] [place] [address] Care Team Providers Care Specialty Cook Name Role Phone Unavailable Primary Care Provider Unavailabl e Social History Tobacco Use Types Packs/Day Years Used Date Smoking Tobacco: Never Assessed Area Deprivation Index Answer Date Maury rded National Score (1-100), lower number is lower ri sk Not on file 06/02/2020 State Score (1-10), lower number is lower risk N ot on file 06/02/2020 Data from: https://www.neighborhoodatlas.medicine.[facility]/. Last address used for calculation Not on file 06/02/2020 Sex and Gender Information Value Date Recorded Sex Assigned at Not on file Legal Sex Male 10:42 AM EST Gender Identity Not on file Sexual Orientation Not on file Plan of Treatment Health Maintenance Due Date Last Done Comments Anxiety Screening 2006 Depression Screening 2006 HIV Screening 2006 Hepatitis C Screening 2006 DTaP,Tdap,Td Vaccine (1 - Tdap) 2007 Hepatitis B Vaccine (1 of 3 - 19+ 3-dose series) 05/07 HPV Vaccine (1 - 3-dose SCDM series) 2015 Lipid Screening 2023 Influenza Vaccine (#1) 2025 Insurance [employer]
--- OUTSIDE RECORDS SUMMARY | 2025-03-29 12:36 | XMS_ITS | Clinical Summary ---
Author Organization [employer] tem Address [id number] [address] 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 Role Phone Georgi Unger DO Primary Care Provider Social History Tobacco Use Types Packs/Day Years Used Date Smoking Tobacco: Never Assessed Sex and Gender Information Value Date Recorded Sex Assigned at Not on file Legal Sex Male 12:23 PM EDT Gender Identity Not on file Sexual Orientation Not on file Plan of Treatment Health Maintenance Due Date Last Done Comments Depression Screening 2000 Tobacco Screening 2000 Adult BMI Screening 2006 DTaP,Tdap and Td Vaccines (1 - Tdap) 2007 Influenza Vaccine 02/22/2025 Medical Devices Not on file Insurance [employer] Care Teams Electric Freight Car Operator Relationship Specialty Start Date End Date Georgi Unger DO [address] [place], [place] [address] [address] PCP - General Family Medicine 11/01/20
--- OUTSIDE RECORDS SUMMARY | 2025-03-29 12:36 | XMS_ITS | Clinical Summary ---
Author Organization [facility] Address [address] [place] [address] Phone Care Team Providers Care Kaiawhina Name Role Phone Unavailable Primary Care Provider Unavailabl e Social History Tobacco Use Types Packs/Day Years Used Date Smoking Tobacco: Never Assessed Sex and Gender Information Value Date Recorded Sex Assigned at Not on file Legal Sex Male 7:07 AM EST Gender Identity Not on file Sexual Orientation Not on file Plan of Treatment Not on file
--- OUTSIDE RECORDS SUMMARY | 2025-03-29 12:36 | XMS_ITS | Encounter Summary ---
Author Organization [facility] Address [address] [place] [address] Phone Care Team Providers Care Desktop Publishing Specialist Name Role Phone Unavailable Primary Care Provider Unavailabl e Encounter Details Date Type Department Care Team (Late st Contact Info) Description 11/01/2020 Orders Only [email or web address] LEGACY [address] [place] [address] Conversion, Onbase Social History Tobacco Use Types Packs/Day Years Used Date Smoking Tobacco: Never Assessed Sex and Gender Information Value Date Recorded Sex Assigned at Not on file Legal Sex Male 7:07 AM EST Gender Identity Not on file Sexual Orientation Not on file documented as of this encounter Plan of Treatment Scheduled Orders Name Type Priority Associated Diagnoses Orde r Schedule OUTSIDE LAB SCAN Lab Ordered: 11/01/2020 OUTSIDE LAB SCAN Lab Ordered: 11/01/2020 documented as of this encounter Visit Diagnoses Not on filedocumented in this encounter
--- NOTE | 2025-03-29 13:28 | ED_ITS ---
HPI HPI - General Adult General Chief complaint: Head Injury Stated complaint: HEAD INJURY/LACERATION Time Seen by Provider: 03/29/25 12:32 Source: patient Mode of arrival: walk-in History of Present Illness HPI narrative: cc - head injury and knee injury - lacerations Patient was at work and stated that a steel beam broke loose from a harness and struck him in the head and also as it fell to the ground struck him in the right knee. He sustained lacerations to both areas. He denies any loss of consciousness. He denies any neck pain or back pain. He denies any nausea, vomiting, blurred vision. He has pain at the area at the top of the scalp. There is a large irregularly shaped laceration to the top of the scalp. He also sustained a U-shaped flap laceration to the anterior right knee. He is uncertain about his tetanus status, believing that he got it sometime around 5 years ago. Related Data Home Medications ?Medication ?Instructions ?Recorded ?Confirmed No Known Home Medications 03/29/2512/16 Allergies Allergy/AdvReac Type Severity Reaction Status Date / Time Penicillins Allergy Severe Unknown Verified 03/29/25 12:34 PFSH PFS Social History Little interest or pleasure in doing things: not at all Feeling down, depressed, or hopeless: not at all Exam Narrative Exam Narrative: Nurses note and vital signs reviewed and patient is not hypoxic. afebrile General: The patient appears well and in no apparent distress. Patient is resting comfortably on cart. GCS = 15. Skin: Warm, dry, no pallor noted. Head: Irregularly-shaped 9 cm laceration to the top of the scalp. The remainder of the face and scalp are normocephalic, atraumatic Neck: Supple, trachea mid-line, no tenderness, no lymphadenopathy. Full ROM and no cervical spinal tenderness. The patient has no step-offs or crepitus noted Eyes: PERRLA, EOMI ENT: TM's clear, no hemotympanum detected, no blood in posterior oropharynx Cardiovascular: Regular Rate and Rhythm Respiratory: Patient is in no distress, no accessory muscle use, lungs are clear to auscultation, no wheezing, rales or rhonchi Back: No thoracic vertebral or lumbar vertebral tenderness to palpation. Musculoskeletal: U-shaped flap laceration to the anterior knee at the patella that is superficial and does not extend into the bony subcutaneous structures below. There is no foreign material noted. Total measurement of the laceration is 4 cm. Normal range of motion at the right knee and movement of the patella does not cause any discomfort. No sign of long bone fracture, no tenderness, no swelling. Moves all four extremities in all modalities with 5/5 strength. 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 Psychiatric: Cooperative Constitutional Vital Signs, click to edit/add: Last Vital Signs Temp 98.8 F 03/29/25 12:30 Pulse 90 03/29/25 12:30 Resp 18 03/29/25 12:30 BP 152/95 H 03/29/25 12:30 Pulse Ox 96 03/29/25 12:30 O2 Del Method Room Air 03/29/25 12:30 Course Vital Signs Vital signs: Vital Signs Temperature 98.8 F 03/29/25 12:30 Pulse Rate 90 03/29/25 12:30 Respiratory Rate 18 03/29/25 12:30 Blood Pressure 152/95 H 03/29/25 12:30 Pulse Oximetry 96 03/29/25 12:30 Oxygen Delivery Method Room Air 03/29/25 12:30 Temperature 98.8 F 03/29/25 12:30 Pulse Rate 90 03/29/25 12:30 Respiratory Rate 18 03/29/25 12:30 Blood Pressure 152/95 H 03/29/25 12:30 Pulse Oximetry 96 03/29/25 12:30 Oxygen Delivery Method Room Air 03/29/25 12:30 Medical Decision Making MDM Narrative Medical decision making narrative: I cleansed, anesthetized and closed the wound on the patient's right knee. Laceration repair: Right knee = all of the procedure was done under sterile conditions. Wound cleansed with betadine and anesthetized with local injection of approximately 5mL of lidocaine 1% with epinephrine.The wound was irrigated copiously with sterile normal saline. The wound was explored to depth and found to be free of foreign material. The laceration wound edges were well- approximated and did not require revision. Wound closed with 1 single alignment sterile 4-0 ethilon suture followed by 2 sets of running sterile 4-0 Ethilon sutures to close the wound completely. Patient tolerated the procedure well.The patient was neurovascularly intact post-repair. I applied topical bacitracin to the laceration and dressed with a dry sterile dressing. The patient will need to follow-up in the next 10 days for removal. After that was completed, patient was sent for noncontrast CT scan of the brain to rule out skull fracture or other worrisome pathology. Laceration repair: Scalp = all of the procedure was done under sterile conditions.Wound cleansed with betadine and anesthetized with local injection of approximately 10mL of lidocaine 1% with epinephrine. The wound was irrigated copiously with sterile normal saline. The wound was explored to depth and found to be free of foreign material. The laceration wound edges were well- approximated and did not require revision. Wound closed with 13 sterile primitivo. Patient tolerated the procedure well. The laceration was dressed with a dry sterile dressing.The patient will need to follow-up in the next 10 days for removal. Patient was informed that his CT scan did not reveal any worrisome pathology, according to the radiologist. He was discharged home and we had discussion regarding appropriate wound care, avoidance of certain activities especially swimming or submersion in water. Primitivo and sutures should be removed in 10 days. To return for any sign of infection, which was discussed. Imaging Data CT scan - head: Radiologist's impression: ITS Impressions Head CT 03/29/25 13:38 IMPRESSION: NO ACUTE INTRACRANIAL ABNORMALITY. Impression dictated by: Vlad Jackson Jr., D.O. 03/29/2025 2:00 PM Dictation Location: [place] [address] Electronically authenticated by: [id number] Y Date: 03/29/2025 14:00 Discharge Plan Discharge Chief Complaint: Head Injury Clinical Impression: Complex laceration of scalp, Head injury, Knee laceration Patient Disposition: Home, Self-Care Time of Disposition Decision: 14:41 Prescriptions / Home Meds: No Action No Known Home Medications Print Language: Occitan Instructions: Care For Your Stitches (ED), Laceration (ED), Head Injury (ED) Additional Instructions: recommend primitivo be removed in 10 days. Recommend sutures be removed in 10 days Referrals: TAMANNA CHAN [Primary Care Provider, Family Practice] - 1 week
--- NOTE | 2025-03-29 13:38 | CT_ITS ---
The [address] [address] Patient Name: JUMANA BALLARD MRN: [id number] date: 1990 Sex: M Assigned Patient Location: ER Current Patient Location: ER Accession/Order Number: [id number] Exam Date: 03/29/2025 13:35 Report Date: 03/29/2025 14:00 At the request of: EDITH GREENE Procedure: CT head/brain wo con CT BRAIN WITHOUT CONTRAST: CLINICAL HISTORY: head injury, head laceration COMPARISON: CT brain 06/13/2022 TECHNIQUE: Contiguous axial unenhanced images were obtained through the brain. This CT exam was performed using one or more following dose reduction techniques: Automated exposure control, adjustment of the mA and/or kV according to patient size, or use of iterative reconstruction technique. FINDINGS: There is no evidence of midline shift, intra or extra-axial fluid collection, hemorrhage or CT evidence of stroke. Posterior fossa appears unremarkable. Visualized intraorbital contents demonstrate no acute findings. Visualized paranasal sinuses are clear. No scalp hematoma. CT/CT head/brain wo con IMPRESSION: NO ACUTE INTRACRANIAL ABNORMALITY. Impression dictated by: Vlad Jackson Jr. DJuniorOJunior 03/29/2025 2:00 PM Dictation Location: [place] [address] Electronically authenticated by: [id number] Y Date: 03/29/2025 14:00
[2025-03-29] MEDS: LIDOCAINE HCL 1%-EPINEPHRINE 1:100,000 20 ML MDV INJ (14:18)
[2025-03-29] MEDS: BACITRACIN 0.9 GM PACKET 1 PACKET TOPICAL (14:18)
== END 2025-03-29 15:03 | disposition home or self-care (01) ==
PROVIDERS: Emergency Provider Emergency Medicine; PCP Family Medicine
DX: S01.01XA Laceration without foreign body of scalp, initial encounter (principal); S81.011A Laceration without foreign body, right knee, initial encounter; W20.8XXA Other cause of strike by thrown, projected or falling object, initial encounter; S09.90XA Unspecified injury of head, initial encounter
CPT/HCPCS: 12005; 70450; 99285

== ENCOUNTER 2025-04-08 07:12 | Emergency (ER) | payer OTHER, SELFPAY ==
[2025-04-08 07:18] VITALS: BP 135/88; PULSE 91; TEMP 37.1; O2SAT 99; BMI 25.1
--- NOTE | 2025-04-08 07:42 | ED.GENADUL1 ---
HPI HPI - General Adult General Chief complaint: Recheck/Abnormal Lab/Rx Stated complaint: SUTURE & STAPLE REMOVAL Time Seen by Provider: 04/08/25 07:23 Mode of arrival: walk-in Limitations: no limitations History of Present Illness HPI narrative: The patient is here for removal of primitivo and stitches that he had placed after an injury on March 29, the patient had no other complaints Related Data Home Medications ?Medication ?Instructions ?Recorded ?Confirmed No Known Home Medications 03/29/25 03/29/25 Allergies Allergy/AdvReac Type Severity Reaction Status Date / Time Penicillins Allergy Severe Unknown Verified 04/08/25 07:18 Review of Systems ROS Status of ROS 10 or more systems reviewed and unremarkable except as noted in history and below PFSH PFSH Social History Little interest or pleasure in doing things: not at all Feeling down, depressed, or hopeless: not at all Exam Narrative Exam Narrative: Nurses notes and vital signs reviewed and patient is not hypoxic. General: Well-appearing and in no apparent distress. Skin: Warm, dry, no pallor noted. No rash. Head: Laceration to the scalp that is healing well with 13 primitivo applied Right lower extremity; clean wound and it is healing well with stitches in place Neurological: A&O x4. No cranial nerve dysfunction observed. No truncal ataxia. Moves all extremities. Sensation intact. Psychiatric: Cooperative and interactive. Normal mood and affect. Constitutional Vital Signs, click to edit/add: Last Vital Signs Temp 98.7 F 04/08/25 07:18 Pulse 91 H 04/08/25 07:18 Resp 18 04/08/25 07:18 BP 135/88 04/08/25 07:18 Pulse Ox 99 04/08/25 07:18 O2 Del Method Room Air 04/08/25 07:18 Course Vital Signs Vital signs: Vital Signs Temperature 98.7 F 04/08/25 07:18 Pulse Rate 91 H 04/08/25 07:18 Respiratory Rate 18 04/08/25 07:18 Blood Pressure 135/88 04/08/25 07:18 Pulse Oximetry 99 04/08/25 07:18 Oxygen Delivery Method Room Air 04/08/25 07:18 Temperature 98.7 F 04/08/25 07:18 Pulse Rate 91 H 04/08/25 07:18 Respiratory Rate 18 04/08/25 07:18 Blood Pressure 135/88 10/16/25 07:18 Pulse Oximetry 99 04/08/25 07:18 Oxygen Delivery Method Room Air 04/08/25 07:18 Medical Decision Making MDM Narrative Medical decision making narrative: The patient had the stitches and primitivo removed No infection Follow-up with the primary care for further evaluation and monitoring of symptoms in case of any redness or any new symptoms he is to come back to the ER The patient is to follow up with primary care physician in next 2-3 days or to return to the emergency department should any of the signs or symptoms worsen or new symptoms develop. The patient agrees with the following Diagnosis and Treatment plan and the patient will be discharged home. Discharge Plan Discharge Chief Complaint: Recheck/Abnormal Lab/Rx Clinical Impression: Removal of staple, Visit for suture removal Patient Disposition: Home, Self-Care Time of Disposition Decision: 07:43 Condition: Good Prescriptions / Home Meds: No Action No Known Home Medications Print Language: Latvian Instructions: Stitches Removal (ED) Referrals: TAMANNA CHAN [Primary Care Provider, Family Practice] - 1 week
--- OUTSIDE RECORDS SUMMARY | 2025-04-08 07:43 | XMS_ITS | Encounter Summary ---
Author Organization [facility] Address [address] [place] [address] Phone Care Team Providers Care Screed Person Name Role Phone Unavailable Primary Care Provider Unavailabl e Encounter Details Date Type Department Care Team (Late st Contact Info) Description 11/01/[address] [facility] LEGACY [address] [place] [address] Conversion, Onbase Social History Tobacco Use Types [...]
--- OUTSIDE RECORDS SUMMARY | 2025-04-08 07:43 | XMS_ITS | Clinical Summary ---
Author Organization [address] tem Address [id number] [address] [place] [address] Care Team Providers Care Director Of Communications Name Role Phone Georgi Unger DO Primary Care Provider [phone] Social History Tobacco Use Types Packs/Day Years [...] Not on file Insurance [employer] Care Teams Director Of Communications Relationship Specialty Start Date End Date Georgi Unger DO [address] [place], [place] [address] [address] PCP - General Family Medicine 11/01/20
--- OUTSIDE RECORDS SUMMARY | 2025-04-08 07:43 | XMS_ITS | CCD ---
Author Organization [facility] Inform ion Partnership [facility] Care Team Providers Care Jaw Skinner Name Role Phone BRADFORD HARRIS Admitting Unavailable BRADFORD HARRIS Attending Unavailable DAVID, DR EDUARDO Medrano Primary Care Unavailable DR KINZA MORFIN Consulting Unavailable CHARLES POWER Consulting Unavailable ECTOR SHI Consulting Unavailable Georgi Unger Unavailable John Chow Unavailable Sherrie Pride Unavailable Georgi Unger DO Primary Care Provider [phone] Georgi Unger DO Attending Provider [phone] Georgi Unger Attending Unavailable Georgi Unger Primary Care Unavailable Georgi Unger Admitting Unavailable Allergies Allergy Classification Reported Allergen(s) Allergy Type Date of Onset Reaction(s) Facility (9 sources) Amoxicillin Drug Allergy 4 Unknown, Rash [facility] (9 sources) penicillAMINE Drug Allergy 4 [facility] (1 source) Amoxicillin Drug Allergy 5 [facility] (1 source) penicillAMINE Drug Allergy 5 [facility] Medications Current Medications Medication Drug Class(es) Dates Sig (Normalized) Sig (Original) [id number] 200 actuat albuterol 0.09 mg/actuat metered dose [...] / neomycin 3.5 mg/ml / polymyxin b [id number] unt/ml otic suspension (3 sources) Aminoglycoside Antibacterial, Polymyxin-class Antibacterial, Corticosteroid Start: 06-29-2022 Neomycin-Polymyxi n-HC [id number] 3 drops left ear Three times a day for 7 days Jun, Active [place] (No Known Home Meds) (1 source) Start: 03-19-2025 [place] (No Known Home Meds) Active March 19, [...] tophaceous disease; 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] Episodic Other nutritional; endocrine; and metabolic disorders (1 source) Abnormal weight gain Episodic Other nutritional; endocrine; and metabolic disorders (4 sources) Hyperuricemia; Translations: [Hyperuricemia without signs of inflammatory arthritis and tophaceous disease] 09-16-2023 Episodic Other screening for suspected conditions (not mental disorders or infectious disease) (2 sources) Blood chemistry abnormal; Translations: [Other specified abnormal findings of blood chemistry] 03-19-2025 Episodic Otitis media and related conditions (1 source) Otitis media, unspecified, left ear Episodic Results Test Name Value Interpretation Reference Range Facility Alanine aminotransferase [En zymatic activity/volume] in Serum or PlasmaOrdered By: Georgi Unger on 03-18-2025 ALT [Catalytic activity/Vol] 13 U/L Normal 7-52 [facility] Comment on above: Performed By: #### U A, CBC, PSAS, CMP, URIC, LIPID, TSH3 #### [facility] [address] [place] [address] [place] Albumin [Mass/volume] in Ser um or Plasma by Bromocresol green (BCG) dye binding methoOrdered By: Georgi Unger on 03-18-2025 Albumin BCG dye [Mass/Vol] 4.6 g/dL 3.5-5.7 [facility] Alkaline phosphatase [Enzyma tic activity/volume] in Serum or PlasmaOrdered By: Georgi Unger on 03-18-2025 ALP [Catalytic activity/Vol] 58 U/L Normal 34-104 [facility] Comment on above: Performed By: #### U A, CBC, PSAS, CMP, URIC, LIPID, TSH3 #### [facility] [address] [place] [address] [place] Aspartate aminotransferase [ Enzymatic activity/volume] in Serum or PlasmaOrdered By: Georgi Unger on 03-18-2025 AST [Catalytic activity/Vol] 16 U/L Normal 13-39 [facility] Comment on above: Performed By: #### U A, CBC, PSAS, CMP, URIC, LIPID, TSH3 #### [facility] [address] [place] [address] [place] Basophils [#/volume] in Bloo d by Automated countOrdered By: Georgi Unger on 03-18-2025 Basophils (Bld) [#/Vol] 0.0 10*3/uL Normal 0.0-0.2 [facility] Comment on above: Result Comment: PERF ORMED BY: [place] [address] PATHOLOGIST MITERING MACHINE OPERATOR FIORDALIZA GROVER M.D. Performed By: #### U A, CBC, PSAS, CMP, URIC, LIPID, TSH3 #### [place] [address] [place] Basophils/100 leukocytes in Blood by Automated countOrdered By: Georgi Unger on 03-18-2025 Basophils/100 WBC (Bld) 0.5 % Normal . [facility] Comment on above: Performed By: #### U A, CBC, PSAS, CMP, URIC, LIPID, TSH3 #### [address] Bilirubin Test strip Ql (U)O rdered By: Georgi Unger on 03-18-2025 Bilirubin Ql (U) Negative Negative [facility] Bilirubin.total [Mass/volume ] in Serum or PlasmaOrdered By: Georgi Unger on 03-18-2025 Bilirubin [Mass/Vol] 0.4 mg/dL Normal 0.3-1.0 [facility] Comment on above: Performed By: #### U A, CBC, PSAS, CMP, URIC, LIPID, TSH3 #### [address] Calcium [Mass/volume] in Ser um or PlasmaOrdered By: Georgi Unger on 03-18-2025 Calcium [Mass/Vol] 9.4 mg/dL Normal 8.6-10.3 [facility] Comment on above: Performed By: #### U A, CBC, PSAS, CMP, URIC, LIPID, TSH3 #### [facility] [address] Carbon dioxide, total [Moles /volume] in Serum or PlasmaOrdered By: Georgi Unger on 03-18-2025 CO2 [Moles/Vol] 29.5 mmol/L Normal 21.0-31.0 [facility] Comment on above: Performed By: #### U A, CBC, PSAS, CMP, URIC, LIPID, TSH3 #### [facility] [address] [place] [address] [place] Chloride [Moles/volume] in S erick or PlasmaOrdered By: Georgi Unger on 03-18-2025 Chloride [Moles/Vol] 105 mmol/L Normal 98-107 [facility] Comment on above: Performed By: #### U A, CBC, PSAS, CMP, URIC, LIPID, TSH3 #### [facility] [address] [place] [address] [place] Cholesterol [Mass/volume] in Serum or PlasmaOrdered By: eGorgi Unger on 03-18-2025 Cholesterol [Mass/Vol] 181 mg/dL Normal 140-200 [facility] Comment on above: Chol less than 200 m g/dl low riskChol 201-239 mg/dl borderline riskChol 240 mg/dl and greater high risk Result Comment: Chol less than 200 mg/dl low risk Chol 201-239 mg/dl borderline risk Chol 240 mg/dl and greater high risk Performed By: #### U A, CBC, PSAS, CMP, URIC, LIPID, TSH3 #### [facility] [address] [place] [address] [place] Cholesterol in HDL [Mass/vol ume] in Serum or PlasmaOrdered By: Georgi Unger on 03-18-2025 Cholesterol in HDL [Mass/Vol] 30 mg/dL Normal 23-92 [facility] Comment on above: HDL CHOL ATP-III CLA SSIFICATION Cardiovascular RiskHDL > or equal to 60 mg/dL LOWHDL < 40 mg/dL HIGH Result Comment: HDL CHOL ATP-III CLASSIFICATION Cardiovascular Risk HDL > or equal to 60 mg/dL LOW HDL < 40 mg/dL HIGH Performed By: #### U A, CBC, PSAS, CMP, URIC, LIPID, TSH3 #### [address] Cholesterol in LDL Calc [Mas s/Vol]Ordered By: Georgi Unger on 03-18-2025 Cholesterol in LDL [Mass/Vol] 84 mg/dL 0-100 [facility] Comment on above: LDL ATP III CLASSIFI CATIONLDL less than 100 mg/dL OptimalLDL 100-129 mg/dL Near or above optimalLDL 130-159 mg/dL Borderline highLDL 160-189 mg/dL HighLDL greater than 189 mg/dL Very high Cholesterol in VLDL Calc [Ma ss/Vol]Ordered By: Georgi Unger on 03-18-2025 Cholesterol in VLDL [Mass/Vol] 67 mg/dL [facility] Color of Urine by AutoOrdere d By: Georgi Unger on 03-18-2025 Color (U) Yellow Normal Yellow [facility] Comment on above: Order Comment: Name Collection Type:: Clean-Voided Midstream Performed By: #### U A, CBC, PSAS, CMP, URIC, LIPID, TSH3 #### [address] Complete Blood Count Auto Di ffon 03-18-2025 Mean Corpuscular HGB Conc 33.6 g/dL Normal 32.5-35.6 [facility] Comment on above: Performed By: #### U A, CBC, PSAS, CMP, URIC, LIPID, TSH3 #### [address] NRBC% 0.1 /100{WBC} Normal 0-0.5 [facility] Comment on above: Performed By: #### U A, CBC, PSAS, CMP, URIC, LIPID, TSH3 #### [address] White Blood Count 7.1 [CFU]/mL Normal 4.1-10.5 [facility] Comment on above: Performed By: #### U A, CBC, PSAS, CMP, URIC, LIPID, TSH3 #### [address] Comprehensive Metabolic Pane jose carlos 03-18-2025 Albumin [Mass/Vol] 4.6 g/dL Normal 3.5-5.7 [facility] Comment on above: Performed By: #### U A, CBC, PSAS, CMP, URIC, LIPID, TSH3 #### [place] [address] [place] GFR/1.73 sq M.predicted MDRD (S/P/Bld) [Vol rate/Area] mL/min/{1.73_m2} Normal [facility] Comment on above: Performed By: #### U A, CBC, PSAS, CMP, URIC, LIPID, TSH3 #### [address] Creatinine [Mass/volume] in Serum or PlasmaOrdered By: Georgi Unger on 03-18-2025 Creatinine [Mass/Vol] 1.13 mg/dL Normal 0.70-1.30 [facility] Comment on above: Performed By: #### U A, CBC, PSAS, CMP, URIC, LIPID, TSH3 #### [address] Eosinophils [#/volume] in Bl ood by Automated countOrdered By: Georgi Unger on 03-18-2025 Eosinophils (Bld) [#/Vol] 0.1 10*3/uL Normal 0.0-0.45 [facility] Comment on above: Performed By: #### U A, CBC, PSAS, CMP, URIC, LIPID, TSH3 #### [place] [address] [place] Eosinophils/100 leukocytes i n Blood by Automated countOrdered By: Georgi Unger on 03-18-2025 Eosinophils/100 WBC (Bld) 1.0 % Normal . [facility] Comment on above: Performed By: #### U A, CBC, PSAS, CMP, URIC, LIPID, TSH3 #### [address] Erythrocyte distribution wid th [Ratio] by Automated countOrdered By: Georgi Unger on 03-18-2025 Erythrocyte distribution width (RBC) [Ratio] 12.8 % Normal 12.0-14.8 [facility] Comment on above: Performed By: #### U A, CBC, PSAS, CMP, URIC, LIPID, TSH3 #### [facility] [address] Erythrocytes [#/volume] in B lood by Automated countOrdered By: Georgi Unger on 03-18-2025 RBC (Bld) [#/Vol] 5.03 10*6/uL Normal 3.90-5.60 [facility] Comment on above: Performed By: #### U A, CBC, PSAS, CMP, URIC, LIPID, TSH3 #### [facility] [address] Glomerular filtration rate [ Volume Rate/Area] in Serum, Plasma or Blood by CreatinineOrdered By: Georgi Unger on 03-18-2025 Glomerular filtration rate [Volume Rate/Area] in Serum, Plasma or Blood by Creatinine > 60.0 mL/Min [facility] Glucose [Mass/volume] in Ser um or PlasmaOrdered By: Georgi Unger on 03-18-2025 Glucose [Mass/Vol] 101 mg/dL High 70-100 [facility] Comment on above: ADA recommended refe rence rangeRandom Glucose Reference Range is dependent on time and content of last meal. Glucose of more than 200 mg/dL in a nonstressed, ambulatory subject supports the diagnosis of Diabetes Mellitus. Result Comment: [place] om Glucose Reference Range is dependent on time and content of last meal. Glucose of more than 200 mg/dL in a nonstressed, ambulatory subject supports the diagnosis of Diabetes Mellitus. ADA recommended reference range Performed By: #### U A, CBC, PSAS, CMP, URIC, LIPID, TSH3 #### [facility] [address] Hematocrit [Volume Fraction] of Blood by Automated countOrdered By: Georgi Unger on 03-18-2025 Hematocrit (Bld) [Volume fraction] 43.0 % Normal 38.8-50.0 [facility] Comment on above: Performed By: #### U A, CBC, PSAS, CMP, URIC, LIPID, TSH3 #### [address] Hemoglobin [Mass/volume] in BloodOrdered By: Georgi Unger on 03-18-2025 Hemoglobin (Bld) [Mass/Vol] 14.4 g/dL Normal 13.0-17.0 [facility] Comment on above: Performed By: #### U A, CBC, PSAS, CMP, URIC, LIPID, TSH3 #### [address] Ketones [Presence] in Urine by Test stripOrdered By: Georgi Unger on 03-18-2025 Ketones Ql (U) Negative Normal Negative [facility] Comment on above: Order Comment: Name Collection Type:: Clean-Voided Midstream Performed By: #### U A, CBC, PSAS, CMP, URIC, LIPID, TSH3 #### [address] Leukocyte esterase [Presence ] in Urine by Test stripOrdered By: Georgi Unger on 03-18-2025 Leukocyte esterase Test strip Ql (U) Negative Normal Negative [facility] Comment on above: Order Comment: Name Collection Type:: Clean-Voided Midstream Performed By: #### U A, CBC, PSAS, CMP, URIC, LIPID, TSH3 #### [address] Leukocytes [#/volume] correc jose luis for nucleated erythrocytes in Blood by Automated counOrdered By: Georgi Unger on 03-18-2025 WBC corrected for nucl RBC Auto (Bld) [#/Vol] 7.1 10*3/uL 4.1-10.5 [facility] Leukocytes [#/volume] in Blo od by Automated countOrdered By: Georgi Unger on 03-18-2025 WBC (Bld) [#/Vol] 7.1 10*3/uL Normal 4.1-10.5 [facility] Comment on above: Performed By: #### U A, CBC, PSAS, CMP, URIC, LIPID, TSH3 #### [facility] [address] Lipid Panelon 03-18-2025 LDL Cholesterol,Calculated 84 mg/dL Normal 0-100 [facility] Comment on above: Result Comment: LDL ATP III CLASSIFICATION LDL less than 100 mg/dL Optimal LDL 100-129 mg/dL Near or above optimal LDL 130-159 mg/dL Borderline high LDL 160-189 mg/dL High LDL greater than 189 mg/dL Very high Performed By: #### U A, CBC, PSAS, CMP, URIC, LIPID, TSH3 #### [facility] [address] Triglyceride w/Reflex 335 mg/dL High 0-149 [facility] Comment on above: Result Comment: TRIG ATP III CLASSIFICATION TRIG less than 150 mg/dL Normal TRIG 150-199 mg/dL Borderline high TRIG 200-500 mg/dL High TRIG greater than 500 mg/dL Very high Standard traceable to the Center for Disease Conrtrol and Prevention (CDC) test method. Performed By: #### U A, CBC, PSAS, CMP, URIC, LIPID, TSH3 #### [facility] [address] VLDL CHOLESTEROL 67 mg/dL Normal [facility] Comment on above: Performed By: #### U A, CBC, PSAS, CMP, URIC, LIPID, TSH3 #### [facility] [address] [place] [address] [place] Lymphocytes [#/volume] in Bl ood by Automated countOrdered By: Georgi Unger on 03-18-2025 Lymphocytes (Bld) [#/Vol] 2.1 10*3/uL Normal 1.00-4.8 [facility] Comment on above: Performed By: #### U A, CBC, PSAS, CMP, URIC, LIPID, TSH3 #### [facility] [address] [place] [id number] [place] Lymphocytes/100 leukocytes i n Blood by Automated countOrdered By: Georgi Unger on 03-18-2025 Lymphocytes/100 WBC (Bld) 30.4 % Normal . [facility] Comment on above: Performed By: #### U A, CBC, PSAS, CMP, URIC, LIPID, TSH3 #### [facility] [address] MCH [Entitic mass] by Automa jose luis countOrdered By: Georgi Unger on 03-18-2025 MCH (RBC) [Entitic mass] 28.7 pg Normal 27.5-35.2 [facility] Comment on above: Performed By: #### U A, CBC, PSAS, CMP, URIC, LIPID, TSH3 #### [facility] [address] MCHC Auto (RBC) [Mass/Vol]Or dered By: Georgi Unger on 03-18-2025 MCHC (RBC) [Mass/Vol] 33.6 g/dL 32.5-35.6 [facility] MCV [Entitic volume] by Auto mated countOrdered By: Georgi Unger on 03-18-2025 MCV (RBC) [Entitic vol] 85.4 fL Normal 83.5-101 [facility] Comment on above: Performed By: #### U A, CBC, PSAS, CMP, URIC, LIPID, TSH3 #### [place] [address] [place] Monocytes [#/volume] in Bloo d by Automated countOrdered By: Georgi Unger on 03-18-2025 Monocytes (Bld) [#/Vol] 0.5 10*3/uL Normal 0.0-0.8 [facility] Comment on above: Performed By: #### U A, CBC, PSAS, CMP, URIC, LIPID, TSH3 #### [facility] [address] [place] [address] [place] Monocytes/100 leukocytes in Blood by Automated countOrdered By: Georgi Unger on 03-18-2025 Monocytes/100 WBC (Bld) 6.4 % Normal . [facility] Comment on above: Performed By: #### U A, CBC, PSAS, CMP, URIC, LIPID, TSH3 #### [facility] [address] [place] [address] [place] Neutrophils [#/volume] in Bl ood by Automated countOrdered By: Georgi Unger on 03-18-2025 Neutrophils (Bld) [#/Vol] 4.4 10*3/uL Normal 1.8-7.7 [facility] Comment on above: Performed By: #### U A, CBC, PSAS, CMP, URIC, LIPID, TSH3 #### [facility] [address] [place] [address] [place] Neutrophils/100 leukocytes i n Blood by Automated countOrdered By: Georgi Unger on 03-18-2025 Neutrophils/100 WBC (Bld) 61.7 % Normal . [facility] Comment on above: Performed By: #### U A, CBC, PSAS, CMP, URIC, LIPID, TSH3 #### [facility] [address] Nitrite Test strip Ql (U)Ord ered By: Georgi Unger on 03-18-2025 Nitrite Ql (U) Negative Negative [facility] No Panel InformationOrdered By: Georgi Unger on 03-18-2025 Pharmacy Creatinine Clearance (Chem N/A [facility] Nucleated erythrocytes [Pres ence] in Blood by Automated countOrdered By: Georgi Unger on 03-18-2025 Nucleated RBC Auto Ql (Bld) 0.1 /100{WBC} 0-0.5 [facility] PSA Screen (Yearly Only)on 0 03-18-2025 PSA Screen (Yearly Only) 0.650 ng/mL Normal 0.000-4.00 0 [facility] Comment on above: Order Comment: Is pa tient <50 yrs? Medicare does not pay <50.: Y What is the date of the last PSA Screen?: NONE Is Medicare the insurance?: N Did you verify eligibility (Dx Time) check TestViewGp: YES TO ALL Result Comment: Dwayne al tumor marker results determined by assays using different manufacturers or methods may not be comparable. [facility] machine silver stripper and method: [employer] DXI, CHEMILUMINESCENT IMMUNOASSAY. PERFORMED BY: [place] [address] PATHOLOGIST MITERING MACHINE OPERATOR FIORDALIZA GROVER M.D. Performed By: #### U A, CBC, PSAS, CMP, URIC, LIPID, TSH3 #### [facility] [address] Platelet mean volume [Entiti c volume] in Blood by Automated countOrdered By: Georgi Unger on 03-18-2025 Platelet mean volume (Bld) [Entitic vol] 8.7 fL Normal 6.6-10.1 [facility] Comment on above: Performed By: #### U A, CBC, PSAS, CMP, URIC, LIPID, TSH3 #### [facility] [address] Platelets [#/volume] in Bloo d by Automated countOrdered By: Georgi Unger on 03-18-2025 Platelets (Bld) [#/Vol] 236 10*3/uL Normal 150-450 [facility] Comment on above: Performed By: #### U A, CBC, PSAS, CMP, URIC, LIPID, TSH3 #### [facility] [address] [place] [address] Potassium [Moles/volume] in Serum or PlasmaOrdered By: Georgi Unger on 03-18-2025 Potassium [Moles/Vol] 4.2 mmol/L Normal 3.5-5.1 [facility] Comment on above: Performed By: #### U A, CBC, PSAS, CMP, URIC, LIPID, TSH3 #### [facility] [address] [place] [address] Prostate specific Ag [Mass/v olume] in Serum or PlasmaOrdered By: Georgi Unger on 03-18-2025 Prostate specific Ag [Mass/Vol] 0.650 ng/mL 0.000-4.000 [facility] Comment on above: Serial tumor marker results determined by assays using different manufacturers or methods may not be comparable.[facility] machine silver stripper and method:[employer] UNICEL DXI, CHEMILUMINESCENT IMMUNOASSAY. Protein Test strip (U) [Mass /Vol]Ordered By: Georgi Unger on 03-18-2025 Protein (U) [Mass/Vol] Negative Negative [facility] Protein [Mass/volume] in Ser um or PlasmaOrdered By: Georgi Unger on 03-18-2025 Protein [Mass/Vol] 7.1 g/dL Normal 6.4-8.9 [facility] Comment on above: Performed By: #### U A, CBC, PSAS, CMP, URIC, LIPID, TSH3 #### [facility] [address] [place] [address] RBC Test strip (U) [#/Vol]Or dered By: Georgi Unger on 03-18-2025 RBC (U) [#/Vol] Negative Negative [facility] Serum globulin measurement b y calculation (mass/volume)Ordered By: Georgi Unger on 03-18-2025 Globulin (S) [Mass/Vol] 2.5 g/dL Normal [facility] Comment on above: Performed By: #### U A, CBC, PSAS, CMP, URIC, LIPID, TSH3 #### [address] Serum or plasma albumin/glob ulin mass ratioOrdered By: Georgi Unger on 03-18-2025 Albumin/Globulin [Mass ratio] 1.8 {ratio} Normal [facility] Comment on above: Performed By: #### U A, CBC, PSAS, CMP, URIC, LIPID, TSH3 #### [address] Serum or plasma anion gap de terminationOrdered By: Georgi Unger on 03-18-2025 Anion gap [Moles/Vol] 9.7 mmol/L Normal 6.0-15.0 [facility] Comment on above: Performed By: #### U A, CBC, PSAS, CMP, URIC, LIPID, TSH3 #### [facility] [address] [place] [address] Serum or plasma total choles terol/high density lipoprotein (HDL) cholesterol mass ratOrdered By: Georgi Unger on 03-18-2025 Cholesterol.total/Choles terol in HDL [Mass ratio] 6.0 {ratio} Normal <5.0 [facility] Comment on above: Performed By: #### U A, CBC, PSAS, CMP, URIC, LIPID, TSH3 #### [address] Sodium [Moles/volume] in Ser um or PlasmaOrdered By: Georgi Unger on 03-18-2025 Sodium [Moles/Vol] 140 mmol/L Normal 136-145 [facility] Comment on above: Performed By: #### U A, CBC, PSAS, CMP, URIC, LIPID, TSH3 #### [facility] [address] Specific gravity Test strip (U) [Rel density]Ordered By: Georgi Unger on 03-18-2025 Specific gravity (U) [Rel density] 1.020 1.001-1.030 [facility] Thyrotropin [Units/volume] i n Serum or PlasmaOrdered By: Georgi Unger on 03-18-2025 TSH Qn 2.15 m[IU]/L Normal 0.45-5.33 [facility] Comment on above: Result Comment: PERF ORMED BY: [place] [address] PATHOLOGIST MITERING MACHINE OPERATOR FIORDALIZA GROVER M.D. Performed By: #### U A, CBC, PSAS, CMP, URIC, LIPID, TSH3 #### [address] Triglyceride [Mass/volume] i n Serum or PlasmaOrdered By: Georgi Unger on 03-18-2025 Triglyceride [Mass/Vol] 335 mg/dL High 0-149 [facility] Comment on above: TRIG ATP III CLASSIF ICATIONTRIG less than 150 mg/dL NormalTRIG 150-199 mg/dL Borderline highTRIG 200-500 mg/dL High TRIG greater than 500 mg/dL Very highStandard traceable to the Center for Disease Conrtrol and Prevention (CDC) test method. Urate [Mass/volume] in Serum or PlasmaOrdered By: Georgi Unger on 03-18-2025 Urate [Mass/Vol] 8.0 mg/dL High 4.4-7.6 [facility] Comment on above: Performed By: #### U A, CBC, PSAS, CMP, URIC, LIPID, TSH3 #### [address] Urea nitrogen [Mass/volume] in Serum or PlasmaOrdered By: Georgi Unger on 03-18-2025 Urea nitrogen [Mass/Vol] 20 mg/dL Normal 01-15 [facility] Comment on above: Performed By: #### U A, CBC, PSAS, CMP, URIC, LIPID, TSH3 #### [address] Urinalysison 03-18-2025 Bilirubin,Urine Negative Normal Negative [facility] Comment on above: Order Comment: Name Collection Type:: Clean-Voided Midstream Performed By: #### U A, CBC, PSAS, CMP, URIC, LIPID, TSH3 #### [address] Glucose Ql (U) Normal Normal Normal [facility] Comment on above: Order Comment: Name Collection Type:: Clean-Voided Midstream Performed By: #### U A, CBC, PSAS, CMP, URIC, LIPID, TSH3 #### [address] Nitrite,Urine Negative Normal Negative [facility] Comment on above: Order Comment: Name Collection Type:: Clean-Voided Midstream Performed By: #### U A, CBC, PSAS, CMP, URIC, LIPID, TSH3 #### [address] Occult Blood,Urine Negative Normal Negative [facility] Comment on above: Order Comment: Name Collection Type:: Clean-Voided Midstream Result Comment: PERF ORMED BY: [place] [address] PATHOLOGIST MITERING MACHINE OPERATOR FIORDALIZA GROVER M.D. Performed By: #### U A, CBC, PSAS, CMP, URIC, LIPID, TSH3 #### [address] Protein,Urine Negative Normal Negative [facility] Comment on above: Order Comment: Name Collection Type:: Clean-Voided Midstream Performed By: #### U A, CBC, PSAS, CMP, URIC, LIPID, TSH3 #### [place] [address] [place] Specificy [place],Urine 1.020 Normal 1.001-1.030 [facility] Comment on above: Order Comment: Name Collection Type:: Clean-Voided Midstream Performed By: #### U A, CBC, PSAS, CMP, URIC, LIPID, TSH3 #### [address] Urobilinogen,Urine Normal Normal Normal [facility] [facility] Comment on above: Order Comment: Name Collection Type:: Clean-Voided Midstream Performed By: #### U A, CBC, PSAS, CMP, URIC, LIPID, TSH3 #### [address] Urine appearance determinati onOrdered By: Georgi Unger on 03-18-2025 Appearance (U) Clear Normal Clear [facility] Comment on above: Order Comment: Name Collection Type:: Clean-Voided Midstream Performed By: #### U A, CBC, PSAS, CMP, URIC, LIPID, TSH3 #### [address] Urine glucose measurement by automated test strip (mass/volume)Ordered By: Georgi Unger on 03-18-2025 Glucose Auto test strip (U) [Mass/Vol] Normal mg/dL Normal [facility] Urobilinogen Test strip (U) [Mass/Vol]Ordered By: Georgi Unger on 03-18-2025 Urobilinogen (U) [Mass/Vol] Normal mg/dL Normal [facility] pH of Urine by Test stripOrd ered By: Georgi Unger on 03-18-2025 pH (U) 6.0 [pH] Normal 5.0-9.0 [facility] Comment on above: Order Comment: Name Collection Type:: Clean-Voided Midstream Performed By: #### U A, CBC, PSAS, CMP, URIC, LIPID, TSH3 #### [address] Automated epithelial cells c ount in urine sediment (number/area)on 09-14-2023 Epithelial cells Auto (Urine sed) [#/Area] RARE #/LPF NONE/RARE [facility] Automated leukocytes count i n urine sediment (number/area)on 09-14-2023 WBC Auto (Urine sed) [#/Area] NONE SEEN #/HPF 0-2 [facility] Automated urine specific gra vity by refractometryon 09-14-2023 Specific gravity Refractometry automated (U) [Rel density] 1.025 1.005-1.025 [facility] Basophils Auto (Bld) [#/Vol] on 09-14-2023 Basophils (Bld) [#/Vol] 0.1 10 3/uL 0.0-0.1 [facility] Basophils/100 WBC Auto (Bld) on 09-14-2023 Basophils/100 WBC (Bld) 0.7 % 0.2-2.0 F [facility] Bilirubin Auto test strip (U ) [Mass/Vol]on 09-14-2023 Bilirubin (U) [Mass/Vol] Negative NEGATIVE [facility] Casts typing in urine sedime nt by light microscopyon 09-14-2023 Casts LM Nom (Urine sed) NONE SEEN #/LPF NONE S EEN [facility] Cholesterol in LDL Calc [Mas s/Vol]on 09-14-2023 Cholesterol in LDL [Mass/Vol] 85.0 mg/dL [facility] Comment on above: <100 mg/dl [id number] 0-129 mg/dl NEAR OR ABOVE [id number] mg/dl BORDERLINE [id number] mg/dl HIGH>190 mg/dl VERY HIGH Cholesterol in VLDL Calc [Ma ss/Vol]on 09-14-2023 Cholesterol in VLDL [Mass/Vol] 42.8 mg/dL [facility] Color Auto (U)on 09-14-2023 Color (U) LT. YELLOW YELLOW [facility] Eosinophils/100 WBC Auto (Bl d)on 09-14-2023 Eosinophils/100 WBC (Bld) 2.3 % 0.9-7.0 [facility] Erythrocyte distribution wid th Auto (RBC) [Ratio]on 09-14-2023 Erythrocyte distribution width (RBC) [Ratio] 12.3 % 11.0-15.0 [facility] Estimated glomerular filtrat ion rate (GFR) non- Americanon 09-14-2023 GFR/1.73 sq M.predicted among non-blacks MDRD (S/P/Bld) [Vol rate/Area] mL/min/{1.73_m2} >=60 [facility] Globulin Calc (S) [Mass/Vol] on 09-14-2023 Globulin (S) [Mass/Vol] 3.4 g/dL F [facility] Hematocrit Auto (Bld) [Volum e fraction]on 09-14-2023 Hematocrit (Bld) [Volume fraction] 43.8 % 42.0-54.0 [facility] Hemoglobin [Mass/volume] in Bloodon 09-14-2023 Hemoglobin (Bld) [Mass/Vol] 14.1 g/dL 14.0-18.0 [facility] Ketones Auto test strip (U) [Mass/Vol]on 09-14-2023 Ketones (U) [Mass/Vol] Negative NEGATIVE [facility] - Chemistry and C hemistry - challengeon 09-14-2023 Albumin [Mass/Vol] 3.9 g/dL 3.4-5.0 [facility] ALP [Catalytic activity/Vol] 60 U/L 46-116 [facility] ALT [Catalytic activity/Vol] 23 U/L 16-63 [facility] AST [Catalytic activity/Vol] 15 U/L 15-37 [facility] Bilirubin [Mass/Vol] 0.4 mg/dL 0.2-1.0 [facility] Calcium [Mass/Vol] 9.0 mg/dL 8.5-10.1 [facility] Chloride [Moles/Vol] 104 mmol/L 98-107 [facility] Cholesterol [Mass/Vol] 163 mg/dL <=200 [facility] Cholesterol in HDL [Mass/Vol] 36 mg/dL 40-60 [facility] Comment on above: > or =60 mg/dl - LOW CARDIOVASCULAR RISK<40 mg/dl - HIGH CARDIOVASCULAR RISK CO2 [Moles/Vol] 30.4 mmol/L 21.0-32.0 [facility] Creatinine [Mass/Vol] 1.06 mg/dL 0.70-1.30 [facility] GFR/1.73 sq M.predicted MDRD (S/P/Bld) [Vol rate/Area] mL/min/{1.73_m2} >=60 [facility] Glucose [Mass/Vol] 101 mg/dL 74-106 [facility] Potassium [Moles/Vol] 4.0 mmol/L 3.5-5.1 Fir [facility] Protein [Mass/Vol] 7.3 g/dL 6.4-8.2 [facility] Sodium [Moles/Vol] 143 mmol/L 136-145 [facility] Triglyceride [Mass/Vol] 214 mg/dL <=150 F [facility] TSH Qn 2.272 m[IU]/L 0.358-3.740 [facility] Urate [Mass/Vol] 6.7 mg/dL 3.5-7.2 [facility] Urea nitrogen [Mass/Vol] 13.0 mg/dL 7.0-18.0 [facility] Urea nitrogen/Creatinine [Mass ratio] 12.3 mg/mg [facility] Laboratory - Hematology and Cell countson 09-14-2023 Immature granulocytes/100 WBC (Bld) 0.4 % 0.0-0.5 [facility] Leukocytes [#/volume] correc jose luis for nucleated erythrocytes in Blood by Automated counon 09-14-2023 WBC corrected for nucl RBC Auto (Bld) [#/Vol] 7.4 10 3/uL 4.0-11.0 [facility] Lymphocytes Auto (Bld) [#/Vo l]on 09-14-2023 Lymphocytes (Bld) [#/Vol] 2.6 10 3/uL 1.2-3.8 [facility] Lymphocytes/100 WBC Auto (Bl d)on 09-14-2023 Lymphocytes/100 WBC (Bld) 35.2 % 20.5-60.0 [facility] MCH Auto (RBC) [Entitic mass ]on 09-14-2023 MCH (RBC) [Entitic mass] 28.0 pg 25.9-34.0 [facility] MCHC Auto (RBC) [Mass/Vol]on 09-14-2023 MCHC (RBC) [Mass/Vol] 32.2 g/dL 29.9-35.2 [facility] MCV Auto (RBC) [Entitic vol] on 09-14-2023 MCV (RBC) [Entitic vol] 87.1 fL 80.0-94.0 [facility] Monocytes Auto (Bld) [#/Vol] on 09-14-2023 Monocytes (Bld) [#/Vol] 0.6 10 3/uL 0.3-0.8 [facility] Monocytes/100 WBC Auto (Bld) on 09-14-2023 Monocytes/100 WBC (Bld) 7.6 % 1.7-12.0 [facility] Mucus LM Ql (Urine sed)on Mucus Ql (Urine sed) NONE SEEN NONE SEEN [facility] Neutrophils Auto (Bld) [#/Vo l]on 09-14-2023 Neutrophils (Bld) [#/Vol] 4.0 10 3/uL 1.4-6.5 [facility] Neutrophils/100 WBC Auto (Bl d)on 09-14-2023 Neutrophils/100 WBC (Bld) 53.8 % 43.0-75.0 [facility] No Panel Informationon 09-13 Eosinophils # (Auto) 0.2 10 3/uL 0.0-0.7 [facility] Immature Granulocyte # (Auto) 0.03 10 3/uL 0.00-0.03 [facility] Platelet mean volume Auto (B ld) [Entitic vol]on 09-14-2023 Platelet mean volume (Bld) [Entitic vol] 9.5 fL 9.5-13.5 [facility] Platelets Auto (Bld) [#/Vol] on 09-14-2023 Platelets (Bld) [#/Vol] 221 10 3/uL 150-450 [facility] Protein Auto test strip (U) [Mass/Vol]on 09-14-2023 Protein (U) [Mass/Vol] Negative NEG/[facility] RBC Auto (Bld) [#/Vol]on RBC (Bld) [#/Vol] 5.03 10 6/uL 4.70-6.10 [facility] Serum or plasma albumin/glob ulin mass ratioon 09-14-2023 Albumin/Globulin [Mass ratio] 1.1 {ratio} [facility] Serum or plasma anion gap de terminationon 09-14-2023 Anion gap [Moles/Vol] 12.6 mmol/L [facility] Serum or plasma total choles terol/high density lipoprotein (HDL) cholesterol mass joseph 09-14-2023 Cholesterol.total/Choles terol in HDL [Mass ratio] 4.5 {ratio} [facility] Comment on above: 3.3 - 4.4 LOW RISK4. 4 - 7.1 AVERAGE RISK7.1 - 11.0 MODERATE RISK>11.0 HIGH RISK Specific gravity Auto test s trip (U) [Rel density]on 09-14-2023 Specific gravity (U) [Rel density] CLEAR CLEAR [facility] Urine bacteria detection by automated methodon 09-14-2023 Bacteria Auto Ql (U) NONE SEEN #/HPF NONE SEEN [facility] Urine glucose measurement by test strip (mass/volume)on 09-14-2023 Glucose Test strip (U) [Mass/Vol] Negative NEGATIVE [facility] Urine hemoglobin detection b y automated test stripon 09-14-2023 Hemoglobin Auto test strip Ql (U) Negative NEGATIVE [facility] Urine nitrite detection by a utomated test stripon 09-14-2023 Nitrite Auto test strip Ql (U) Negative NEGATIVE [facility] Urine sediment crystal ident ification by light microscopyon 09-14-2023 Crystals LM Nom (Urine sed) None Seen #/HPF None Seen [facility] Urine sediment leukocyte cou nt by microscopy (number/high power field)on 09-14-2023 WBC LM.HPF (Urine sed) [#/Area] NONE SEEN #/HPF NONE SEEN [facility] Urobilinogen Auto test strip (U) [Mass/Vol]on 09-14-2023 Urobilinogen Qn (U) 0.2 {Isidro'U}/dL 0.2-1.0 [facility] pH Auto test strip (U)on pH (U) 6.0 [pH] 5.0-9.[address] [facility] [address] CSPINE WO CONon 2 CT CSPINE [...] by: KINZA MORFIN Date: 2022-06-13 14:31 Normal [facility] CT HEAD WO CONon 06-13-2022 CT HEAD [...] by: ECTOR SHI Date: 2022-06-13 14:23 Normal [facility] PROGRESSon 08-18-2019 PROGRESS HNO ID: [id number] Author: Starla (Wayne) Jhoan Service: ? Author Type: Technologist Type: Progress Notes Filed: 08/18/2019 1:40 PM Note Text: [employer] One Year WAYNE Najera Normal [facility] Semen W/Uon 2018 % Motile Sperm 72 % Normal >[address] [facility] Comment on above: Performed By: #### [facility] #### [facility] [address] [address] Abnormal Head 90 % Normal [facility] Comment on above: Performed By: #### B ESMNR #### [facility] [address] [place], [place] [address] Abnormal Tails 4 % Normal [facility] Comment on above: Performed By: #### B ESMNR #### [facility] [address] [place] [address] Abstinence Time 2.[address] [facility] Comment on above: Performed By: #### B ESMNR #### [facility] [address] [place] [address] aPTT Coag (Bld) [Time] 1135/EVALUATION T BECKIE [address] [facility] Comment on above: Performed By: #### B ESMNR #### [facility] [address] [phone] Collection Time [address] [facility] Comment on above: Performed By: #### B ESMNR #### [facility] [address] [address] Concentration 64 M/mL Normal >[address] [facility] Comment on above: Performed By: #### B ESMNR #### [facility] [address] [place], [place] [address] Date Of Analysis IVF SEMEN ANALYSIS 08/27/[address] [facility] Comment on above: Performed By: #### B ESMNR #### [facility] [address] [place], [place] [address] Forward Progression 3 Normal [facility] Comment on above: Result Comment: (NOT E) INTERPRETATION: 0 = No motility 1 = Weak, twitching in place 2 = Poor to moderate, erratic 3 = Good motility, unidirectional 4 = Rapid unidirectional Performed By: #### B ESMNR #### [facility] [address] [place] [phone] Semen Color Normal Normal [facility] Comment on above: Performed By: #### B ESMNR #### [facility] [address] [place] [phone] Semen Comment 1 PARTNER=MARAGRITA BALLARD Normal [facility] Comment on above: Result Comment: ANTI BODIES NEGATIVE IGG=0% IGA=0% Performed By: #### B ESMNR #### [facility] [address] [place] [phone] Semen Comment 2 2 VIALS FROZEN POST THAW MOTILITY 66% Normal [facility] Comment on above: Performed By: #### B ESMNR #### [facility] [address] [place] [phone] Semen pH 7.6 Normal >7.[address] [facility] Comment on above: Performed By: #### B ESMNR #### [facility] [address] [place] [phone] Semen Viscosity Normal Normal [facility] Comment on above: Performed By: #### B ESMNR #### [facility] [address] [place] [phone] Semen Volume 1.4 mL Low >1.[address] [facility] Comment on above: Result Comment: Test ing performed at the [facility]. Contact Dr. Flora Verdugo, PhD, [facility] for any questions ([phone]). Performed By: #### B ESMNR #### [facility] [address] [place] [phone] Sperm Diff (Dave) 6 % Normal >4 [facility] Comment on above: Performed By: #### B ESMNR #### [facility] [address] [place] [phone] Total Count Sperm 89.6 M Normal [facility] Comment on above: Performed By: #### B ESMNR #### [facility] [address] [place] [phone] Total Motile Sperm 64.51 M [facility] Comment on above: Performed By: #### B [facility] #### [facility] [address] [place], [place] [address] CNNURSEon 08-27-2018 CNNURSE Nurse Visit (REIBD) JUMANA BALLARD ([id number]) 1990 M Date Time Provider Department 08/27/18 11:00 AM NURSE CARLOYN [facility] REIBD During your visit today, we recorded the following information about you: Referring Provider: SELF [200] Allergies As of Date: 08/27/2018 (Not on File) Date Reviewed: Never Reviewed Primary Visit Diagnosis:Fertility testing [Z31.41] Problem List As Of Date: 08/27/2018 (None) Encounter Status:Closed by BECCA GALVEZ MD on 09/17/18 [facility] CNOVon 08-27-2018 CNOV Office Visit (ANDRBE ) JUMANA BALLARD ([id number]) 1990 M Date Time Provider Department 08/27/18 11:00 AM ANDROLOGY DRILL [employer]PERATOR [employer] ANDRBE During your visit today, we recorded the following information about you: WAYNE Najera 08/27/2018 2:22 PM Signed IVF Semen Analysis WAYNE Najera Referring Provider: SELF [200] Allergies As of Date: 08/27/2018 (Not on File) Date Reviewed: Never Reviewed Primary Visit Diagnosis:Fertility testing [Z31.41] Problem List As Of Date: 08/27/2018 (None) Encounter Status:Closed by STARLA VILLANUEVA on 08/27/[address] [facility] PROGRESSon 08-27-2018 PROGRESS HNO ID: [id number] Author: Starla (Lab) Jhoan Service: ? Author Type: Technologist Type: Progress Notes Filed: 08/27/2018 2:22 PM Note Text: IVF Semen Analysis Starla Villanueva, LAB Normal [facility] Vital Signs Date Time Vital Sign Value Performing Clinician Facility 03-19-2025 11:04-0400 Diastolic blood pressure 90 mm[Hg] Georgi Unger DO Work Phone: [facility] 03-19-2025 11:04-0400 Systolic blood pressure 138 mm[Hg] Georgi Unger DO Work Phone: [facility] 03-19-2025 10:58-0400 Body height 177.8 cm Georgi Unger DO Work Phone: [facility] 03-19-2025 10:58-0400 Body mass index (BMI) [Ratio] 25 kg/m2 Georgi Unger DO Work Phone: [facility] 03-19-2025 10:58-0400 Body temperature 98.4 [degF] Georgi Unger DO Work Phone: [facility] 03-19-2025 10:58-0400 Body weight 78.92 kg Georgi Unger DO Work Phone: [facility] 03-19-2025 10:58-0400 Heart rate 80 /min Georgi Unger DO Work Phone: [facility] 03-19-2025 10:58-0400 SaO2% (BldA) [Mass fraction] 98 % Georgi Unger DO Work Phone: [facility] 09-16-2023 16:36-0400 Body height 177.8 cm [facility] 09-16-2023 16:36-0400 Body mass index (BMI) [Ratio] 25.8 kg/m2 [facility] 09-16-2023 16:36-0400 Body temperature 98.2 [degF] [facility] 09-16-2023 16:36-0400 Body weight 81.64 kg [facility] 09-16-2023 16:36-0400 Diastolic blood pressure 88 mm[Hg] [facility] 09-16-2023 16:36-0400 Heart rate 77 /min [facility] 09-16-2023 16:36-0400 Respiratory rate 18 /min [facility] 09-16-2023 16:36-0400 SaO2% (BldA) [Mass fraction] 97 % [facility] 09-16-2023 16:36-0400 Systolic blood pressure 130 mm[Hg] [facility] 07-04-2023 10:10-0500 Body height 177.8 cm Georgi Unger Other [facility] 06-29-2022 14:30-0500 Body height 177.8 cm Sherrie Hajimond Other [facility] Other 06-29-2022 14:30-0500 Body mass index (BMI) [Ratio] 25.11 kg/m2 Sherrie Hajimond Other [facility] Other 06-29-2022 14:30-0500 Body temperature 98.9 [degF] Sherrie Hajimond Other [facility] Other 06-29-2022 14:30-0500 Body weight 79.38 kg Sherrie Hajimond Other [facility] Other 06-29-2022 14:30-0500 Respiratory rate 18 /min Sherrie Hajimond Other [facility] Other 06-29-2022 14:30-0500 SaO2% (BldA) [Mass fraction] 97 % Sherrie Pride Other [facility] Other 06-22-2022 11:10-0500 Body height 177.8 cm John Chow Other [facility] Other 06-22-2022 11:10-0500 Body mass index (BMI) [Ratio] 25.82 kg/m2 John Chow Other [facility] Other 06-22-2022 11:10-0500 Body temperature John Chow Other [facility] Other 06-22-2022 11:10-0500 Body weight 81.65 kg John Chow Other [facility] Other 06-22-2022 11:10-0500 Diastolic blood pressure 88 mm[Hg] John Chow Other [facility] Other 06-22-2022 11:10-0500 SaO2% (BldA) [Mass fraction] 97 % John Chow Other [facility] Other 06-22-2022 11:10-0500 Systolic blood pressure 146 mm[Hg] John Chow Other [facility] Other Encounters Encounter Date Encounter Type Care Provider Facility Start: 03-19-2025 End: 03-19-2025 ambulatory Georgi Unger DO Work Phone: [facility] Work Phone: Start: 03-19-2025 End: 03-19-2025 Patient encounter procedure Georgi Unger DO -[facility] Work Phone: Start: 03-19-2025 End: 03-19-2025 Patient encounter status Georgi Unger DO [facility] Start: 03-18-2025 End: 03-18-2025 ambulatory Georgi Unger DO Work Phone: [facility] Work Phone: Start: 03-18-2025 Encounter for genera l adult medical examination without abnormal findings Georgi Unger [facility] Start: 03-18-2025 End: 03-18-2025 Patient encounter procedure Georgi Unger DO -[facility] [place] Work Phone: Start: 09-16-2023 Patient encounter status [facility] Start: 09-16-2023 End: 09-16-2023 ambulatory [facility] Work Phone: Start: 09-16-2023 End: 09-16-2023 Encounter for general adult medical examination without abnormal findings [facility] Start: 09-16-2023 End: 09-16-2023 Patient encounter procedure [facility] [place] Work Phone: Start: 09-14-2023 Non-patient / Non-visit [facility] Work Phone: Start: 07-25-2023 End: 07-25-2023 ambulatory Georgi Unger Other [facility] Other Start: 07-25-2023 Telephone encounter Georgi Unger [facility] [place] Start: 07-04-2023 End: 07-04-2023 ambulatory Georgi Unger Other [facility] Other Start: 07-04-2023 Encounter for genera l adult medical examination without abnormal findings Georgi Unger [facility] [place] Start: 07-04-2023 Telephone encounter Georgi Unger [facility] [place] Start: 07-04-2023 End: 07-04-2023 Patient encounter procedure [facility] [place] Work Phone: Start: 07-02-2023 End: 07-02-2023 ambulatory Georgi Unger Other [facility] Other Start: 07-02-2023 Telephone encounter Georgi Yeniferradha [facility] Start: 06-29-2022 End: 06-29-2022 ambulatory Sherrie Pride Other [facility] Other Start: 06-29-2022 Office outpatient vi sit 15 minutes Sherrie Hajimond [facility] Start: 06-22-2022 End: 06-22-2022 ambulatory John Chow Other [facility] Other Start: 06-22-2022 Office outpatient vi sit 15 minutes John Chow [facility] [address] Start: 06-13-2022 End: 06-13-2022 ambulatory BRADF[facility] HARRIS Facility: Start: 03-26-2022 End: 03-26-2022 ambulatory Georgi Unger Other [facility] Other Start: 03-26-2022 Telephone encounter Georgi Unger [facility] Start: 11-14-2020 SAMUEL, Provider: ANDROLOGY LATOYA MARTINEZ MP IFBRODY, Status: Pen, Time: 10:30 AM Sheri Reyes MD Work Phone: [id number] IVF Work Phone: Start: 11-13-2020 AUDIT Sheri Reyes MD Work Phone: [id number] IVF Work Phone: Plan of Treatment Date Care Activity Detail Author Start: 12-02-2020 SAMUEL, Provider: ANDROLOGY LATOYA MARTINEZ MP IFOB, Status: Pen, Time: 11:30 AM SAMUEL, Provider: ANDROLOGY IVF TRINI MARTINEZOB, Status: Pen, Time: 11:30 AM [id number] IVF Work Phone: Comprehensive metabo lic 2000 panel - Serum or Plasma [facility] Immunizations Immunization Date Immunization Notes Care Provider Gama tompkins NEGATED: Highlighted row has not occurred!08-05-2017 influenza, injectable, quadrivalent, contains preservative Patient Objection Georgi Unger Other [facility] Other Payers Date Payer Category Payer Self-pay [id number] 1990 Unknown [id number] 1961 Unknown [id number] Unknown [employer] Private Health Insurance [employer] [id number] Unknown [place] [id number] Unknown [id number] Social History Date Type Detail Facility Unknown if ever smoked [facility] Other Sex Assigned At Sex Assigned At Bir th [facility] Other Start: 09-16-2023 End: 03-19-2025 Tobacco smoking status NHIS Never smoked tobacco (finding) [facility] Start: 1990 Sex Assigned At Male F [facility] Sex Male (finding) [facility] Clinical Notes 07-25-2021 to 07-04-2023 Note Date [...] months and then it fell by the [place] and he did not follow-up after that. [...] Jun, Other 10:18 AM through 10:34 AM [facility] Other 01-09-2024 Evaluation note* Encounter Date Diagnosis Assessment Notes Treatment Notes Treatment Clinical Notes Jun, Elevated uric acid in blood (ICD-10 - E79.0) Jun, Left foot pain (ICD-10 - M79.672) [facility] Other 01-06-2023 Evaluation note* Encounter Date Diagnosis [...] - H60.502) Jun, Bronchitis (ICD-10 - J40) [facility] Other 12-30-2022 Evaluation note* Encounter Date Diagnosis Assessment Notes Treatment Notes Treatment Clinical Notes May, Removal of primitivo (ICD-10 - Z48.02) 9 primitivo removed by ABRAHAM Spence with staple remover. Pt tolerated procedure well. [facility] Other 10-03-2022 Evaluation note* Encounter Date Diagnosis [...] Mar, Other 1:06 PM - 1:11 PM [facility] Other 02-01-2022 History general Narrative - Reported* Type Description Date Medical History past hx of chickenpoxs Medical History COVID-19 07/2021 Surgical History wisdom teeth extracted 2015 [facility] Other [facility] Other evaluation note* Diagnosis Onset Date Resolution Status Dyslipidemia acute Elevated blood uric acid level acute Idiopathic gout of left foot acute Tinea acute Wellness examination acute [facility] Work Phone: Evaluation noteNo assessment information available [facility] Work Phone: Evaluation note* Diagnosis Onset Date Resolution Status Admit Date Elevated blood uric acid level acute March 19, 2025 10:59am Encounter for prostate cance r screening acute March 19, 2025 10:59am Hyperglycemia acute February 232024 10:59am Hyperlipidemia acute March 19, 2025 10:59am Other abnormal blood chemistry acute March 19, 2025 10:59am Wellness examination acute Feb emb2024 10:59am [facility] Work Phone: Reason for referral (narrative)No reason for [facility] Work Phone: Summary Purpose Family History No [...] section and content) DATE CREATED AUTHOR 08/18/[address] [facility] DATE CREATED AUTHOR AUTHOR'S ORGANIZ ATION 06/20/2022 [facility] DATE CREATED AUTHOR AUTHOR'S ORGANIZ ATION 04/03/2025 [facility] REASON FOR VISIT (unrecogniz ed [...] 2023 Team Status: Inactive Member Role Status Dates Georgi Unger DO Primary Care Provide r, Attending Provider Active Start: September 16, 2023 End: September 16, 2023 Team Status: Inactive Member Role Status Dates Georgi Unger DO Primary Care Provider Active S [...] BE BASED ON THE PRIMARY CLINICAL RECORDS. [facility]. provides no warranty or guarantee of the accuracy or completeness of information in this document.
--- OUTSIDE RECORDS SUMMARY | 2025-04-08 07:43 | XMS_ITS | Clinical Summary ---
Author Organization [facility] Address [address] [place] [address] Phone Care Team Providers Care Visual Merchandiser Name Role Phone Unavailable Primary Care Provider [...]
--- OUTSIDE RECORDS SUMMARY | 2025-04-08 07:43 | XMS_ITS | Clinical Summary ---
Author Organization [facility] Address [address] [place] [address] Care Team Providers Care Hydraulic Mechanic Name Role Phone Unavailable Primary Care Provider Unavailabl e Social History Tobacco Use Types Packs/Day Years Used Date Smoking Tobacco: Never Assessed Area Deprivation Index Answer Date Maury rded National Score (1-100), lower number is lower ri sk Not on file 06/02/2020 State Score (1-10), lower number is lower risk N ot on file 06/02/2020 Data from: [email or web address].medicine.[email or web address] Last address used for calculation Not [...] 3-dose SCDM series) 2015 Lipid Screening 2023 Covid-19 Vaccine ( - 2024- season) 2025 Influenza Vaccine (#[address]) [address] [place] [id number] [employer]
== END 2025-04-08 07:52 | disposition home or self-care (01) ==
PROVIDERS: Emergency Provider Emergency Medicine; PCP Family Medicine
DX: S01.01XD Laceration without foreign body of scalp, subsequent encounter (principal); S81.811D Laceration without foreign body, right lower leg, subsequent encounter
CPT/HCPCS: 99281